=== PATIENT | male | born 1955 | race Caucasian/White ===

== ENCOUNTER 2018-10-18 10:56 | Inpatient (IN) | payer SELFPAY ==
[2018-10-18 11:23] LABS: #Eosinphils 0.1 thou/uL (0.0-0.7); #Lymphocytes 2.1 thou/uL (1.20-3.40); #Neutrophils 15.7 thou/uL (1.40-6.50); %Basophils 0.1 % (0.0-1.0); %Eosinophils 0.6 % (0.0-10.0); %Lymphocytes 11.2 % (21.0-51.0); %Monocytes 5.2 % (0.0-10.0); Hemoglobin 13.1 g/dL (14.0-18.0); Mean Corpuscular HGB CONC 32.4 g/dL (32.0-36.0); Mean Corpuscular Hemoglobin 29.7 pg (27.0-31.0); Mean Corpuscular Volume 91.7 fL (78.0-98.0); Mean Platelet Volume 7.6 fL (7.4-10.4); Platelet Count 365 thou/uL (130-400); RBC Distribution Width 12.9 % (11.5-14.5); Red Blood Cell (RBC) Count 4.41 mill/uL (4.70-6.10); White Blood Cell (WBC) Count 18.9 thou/uL (4.8-10.8)
[2018-10-18 11:42] LABS: ALT (SGPT) 298 U/L (8-55); AST (SGOT) 319 U/L (5-34); Albumin 3.7 g/dL (3.4-4.8); Alkaline Phosphatase 80 U/L (40-150); Anion Gap 13 mmol/L (10-20); BUN (Urea Nitrogen) 12 mg/dL (8.4-25.7); Bilirubin, Total 0.3 mg/dL (0.2-1.2); Calc. Creatinine Clearance 0 mL/min (70-130); Calcium 8.3 mg/dL (7.8-10.44); Carbon Dioxide 23 mmol/L (23-31); Chloride 108 mmol/L (98-107); Estimated GFR-MDRD Greater than 90; Globulin 2.6 g/dL (2.4-3.5); Glucose 167 mg/dL (80-115); Potassium 4.2 mmol/L (3.5-5.1); Protein, Total 6.3 g/dL (5.8-8.1); Sodium 140 mmol/L (136-145)
[2018-10-18] MEDS ORDERED: Fentanyl 100 MCG/2 ML VIAL ONE ×3 (11:59→13:56)
--- NOTE | 2018-10-18 12:04 | RAD ---
AP PELVIS: HISTORY: Fall. Pelvic pain. FINDINGS: No definite fracture or dislocation is seen. POS: [facility]
--- NOTE | 2018-10-18 12:09 | RAD ---
PORTABLE CHEST 1 VIEW: DATE: 10/18/2018. TIME: 11:02 a.m. HISTORY: Fall, right-sided chest pain. FINDINGS: The heart size is normal. The left lung is clear. There are multiple right-sided rib fractures with a small right pleural effusion. There is subcutane ous emphysema in the right lateral chest wall. There is a comminuted fracture involving the right cl avicle. Subcutaneous emphysema extends into the right side of the neck. There are hazy opacities in the right lung suspicious for pulmonary contusions. Discussed over the telephone with ER physician, Dr. Gumaro Sarmiento, at 11:14 a.m. CODE PARVIZ POS: [facility]
[2018-10-18] MEDS ORDERED: Lidocaine 1% (PF) 30 ML VIAL ONE (12:11)
--- NOTE | 2018-10-18 12:12 | CT ---
CT CERVICAL SPINE WITHOUT CONTRAST: History Trauma. Fall. COMPARISON: None. FINDINGS: The occipital condyles are intact. Lateral masses of C1 are intact. The odontoid process is intact. Incomplete evaluation of fracture of the right transverse process of T2 as well as the right 1st and 2nd ribs. No acute fracture of the cervical spine. Mild facet arthropathy. Mild subcutaneous emphysema on the right paraspinal musculature. IMPRESSION: 1. No acute fracture of the cervical spine. 2. Right-sided 1st and 2nd rib neck fractures as well as right T2 transverse process fracture. 3. Likely a right-sided extrapleural hematoma of the lung apex. POS: [facility]
--- NOTE | 2018-10-18 12:12 | CT ---
CT BRAIN WITHOUT CONTRAST: HISTORY: Fall. Level 2 trauma. COMPARISON: None. FINDINGS: No acute hemorrhage or infarct. No midline shift or mass effect. Ventricular size and extraaxial CS F spaces are normal. No midline shift or mass effect. The calvarium is intact. The paranasal sinuses and mastoids are cl ear. Punctate radiopacity is present along the left frontal calvarium scalp. The globes are normal. IMPRESSION: No acute posttraumatic intracranial sequela. POS: [facility]
--- NOTE | 2018-10-18 12:37 | CT ---
CT THORAX WITH IV CONTRAST CT ABDOMEN AND PELVIS WITH IV CONTRAST CT THORACIC AND LUMBAR SPINE: DATE: 10/18/2018. HISTORY: Injury after a fall. The patient has right-sided back pain after falling 10 feet off a roof. Right- sided chest pain exacerbated with inspiration. FINDINGS: CT THORAX: There are multiple right-sided rib fractures with a fracture involving the medial right 1st rib as we ll as fractures involving the 2nd through 9th ribs with fractures involving the medial as well as lat eral aspects of these ribs. The lateral rib fractures are mildly displaced by a full shaft width. There is a small right-sided pneumothorax which occupies at least 15% of the volume of the right sarah thorax. A small amount of increased density fluid is seen on the right suggesting hemothorax. There are areas of parenchymal increased density and ground-glass opacities likely attributable to mu ltiple contusions within the right lung. There are lucencies within the areas of patchy parenchymal density likely representing traumatic pneumatoceles as well as more linear lucency suggesting lacerat ion. There is evidence of subcutaneous emphysema on the right. There is a comminuted fracture involving the middle 1/3 of the right clavicle as well as a mildly com minuted fracture involving the body of the scapula. There is dependent atelectasis on the left, but no left-sided pneumothorax, pleural effusion is ident ified, or left-sided rib fracture is appreciated. CT ABDOMEN AND PELVIS: There is an area of heterogeneity but predominantly of increased density within the central mesentery measuring 4.9 cm x 2.8 cm suggesting an area of hemorrhage. Adjacent linear stranding and hemorrhag e is also present. There are no findings to suggest an area of active extravasation in this region. A tiny amount of free fluid is seen adjacent to the liver and spleen. No obvious parenchymal organ i njury is seen. There are multiple subcentimeter hypodense and slightly heterogeneous lesions seen throughout each lo be of the liver. The largest hypodense lesion in the posterior aspect right hepatic lobe measures 1. 9 cm. There is a 1.4 cm heterogeneous lesion seen within the medial segment of the left hepatic lobe . Findings are worrisome for metastatic disease. A right adrenal lesion which is difficult to further characterize on this post-enhanced CT exam measu res 2.9 cm. This could also potentially represent a metastatic lesion but further evaluation with pr econtrast imaging is recommended. There is a slight area of heterogeneity within the body of the spleen which is thought to be related to phase of enhancement, and this is not felt to represent a splenic injury and laceration. The pancreas, left adrenal gland, bilateral kidneys, and urinary bladder demonstrate a normal CT appe arance. Vascular calcifications are seen in the abdominal aorta and involving the iliac arteries. No fracture is seen involving the osseous structures of the pelvis. CT THORACIC AND LUMBAR SPINE: There are fractures involving the most lateral aspect of the right 2nd, 4th, 5th, and 6th transverse processes of the thoracic spine with a questionable fracture involving the tip of the right 7th trans verse process. There are also nondisplaced fractures involving the right 2nd and 3rd lumbar vertebra l body transverse processes. Vertebral body heights are within normal limits. No additional fracture is seen involving the thorac ic or lumbar spine. There is mild grade anterolisthesis of L5 on S1 likely attributable to the prominent facet degenerati ve changes at this level. IMPRESSION: 1. Findings worrisome for metastatic disease with multiple hypodense lesions seen throughout each lo be of the liver as well as a right adrenal nodule. However, the right adrenal lesion cannot be accur ately characterized on this exam, and precontrast images are recommended for further evaluation. 2. Multiple right-sided rib fractures involving the 1st through 9th ribs with flail segment involvin g the 2nd through 9th ribs. Rib fractures are mildly displaced as described above. 3. Right hemopneumothorax with parenchymal lung contusions seen throughout the right lung with assoc iated small pneumatoceles and areas of laceration. 4. Subcutaneous emphysema right lateral chest and extending into the supraclavicular region. 5. Comminuted fracture right scapula as well as right clavicle. 6. Transverse process fractures involving upper thoracic vertebral bodies as well as the right 2nd a nd 3rd lumbar vertebral bodies. 7. Hemorrhage/hematoma within the central mesentery with adjacent stranding/hemorrhage. 8. Tiny amount of free fluid adjacent to the liver and spleen. 9. Above findings were discussed with Dr. Sarmiento in the emergency department on 10/18/2018 at 1158 hours. CODE CR POS: [facility]
--- NOTE | 2018-10-18 13:15 | RAD ---
PORTABLE CHEST 1 VIEW: DATE: 10/18/2018. TIME: 12:56 p.m. HISTORY: Chest tube placement, pneumothorax, right rib and clavicular fractures. FINDINGS/IMPRESSION: There has been interval placement of a right chest tube since earlier exam of 11:02 a.m. No definite pneumothorax is seen. The remainder of the exam is otherwise stable. POS: [facility]
[2018-10-18] MEDS ORDERED: Rib Fracture Protocol IV SCH (13:45)
[2018-10-18] MEDS ORDERED: Dextrose 5% in Water 1,000 ML IV PRN (13:45)
[2018-10-18] MEDS ORDERED: Morphine 4 MG/ML VIAL SLOW IVP PRN (13:45)
[2018-10-18] MEDS ORDERED: Ondansetron PF 4 MG/2 ML Vial IVP PRN ×2 (13:45→16:40)
[2018-10-18] MEDS ORDERED: Dextrose 50% Abboject 50 ML SYRINGE SLOW IVP PRN (13:45)
[2018-10-18] MEDS ORDERED: HYDROcodone/Acetaminophen 5/325 mg Tablet PO PRN (14:05)
[2018-10-18 14:27] LABS: Hemoglobin 11.9 g/dL (14.0-18.0)
[2018-10-18] MEDS ORDERED: Adacel (T-DAP) 0.5 ML SYRINGE ONE (14:35)
[2018-10-18] MEDS: Sodium Chloride 0.9% 1,000 ML IV SCH (15:31)
[2018-10-18 15:41] VITALS: BMI 26.5
[2018-10-18] MEDS ORDERED: diphenhydrAMINE 50 MG/ML VIAL IVP PRN (16:40)
[2018-10-18] MEDS ORDERED: diphenhydrAMINE 25 MG CAP PO PRN (16:40)
[2018-10-18] MEDS ORDERED: Zolpidem Tartrate 5 MG TAB PO PRN (16:40)
[2018-10-18] MEDS ORDERED: Promethazine HCl 25 MG/ML VIAL IM PRN (16:40)
[2018-10-18] MEDS ORDERED: Naloxone HCl 0.4 mg/ml Vial IV PRN (16:40)
[2018-10-18] MEDS ORDERED: diphenhydrAMINE 50 MG/ML VIAL IM PRN (16:40)
[2018-10-18] MEDS ORDERED: Communication Order-Pharmacy FS SCH (16:45)
--- NOTE | 2018-10-18 17:40 | CON ---
DATE OF CONSULTATION: 10/18/2018 HISTORY OF PRESENT ILLNESS: The patient was in his normal state of health this morning when he fell off of his roof. We were asked by Trauma in the emergency room to see the patient. The patient is on a gurney, resting in bed with multiple injuries for orthopedic purposes. We are seeing him for his right clavicle and scapula fracture. He also has multiple spinous process, transverse process, rib fractures the Trauma is dealing with. He is awake, alert, talking. Family is at the bedside. He is in mild amount of distress due to multiple areas of pain. Medication is easing this somewhat. We discussed the fracture. I showed him where his fracture was at and he did have some pain there and there was obvious bruising and some swelling. He is able to move the right upper extremity well though. Sensations are intact. PAST MEDICAL HISTORY: Healthy, does not see a doctor regularly. SOCIAL HISTORY: [place]. No alcohol or nicotine products. No drugs products. Continues to work. Family is at bedside. SURGICAL HISTORY: None. ALLERGIES: NONE. CURRENT MEDICATIONS: Occasional OTC meds, but nothing on a daily basis. FAMILY HISTORY: His father passed at 78 from heart attack. Otherwise, no positive family history. REVIEW OF SYSTEMS: Multiple complaints of body aches and some shortness of breath, which chest tube has eased. Rest of review of systems is negative. PHYSICAL EXAMINATION: GENERAL: Well-nourished, awake, alert male. Resting on gurney in room 2 in the ER. Speech is clear. Affect pleasant. Answers questions appropriately. He is oriented x3. HEENT: Normal exam. He does have some abrasions to the right side of his face, but the face is symmetric, tongue is midline. NECK: He did have an initial C-collar on. Exam of the neck revealed suppleness. Range of motion is full. Trauma removed the collar. Trachea midline. EXTREMITIES: Upper extremities, there is obvious edema, ecchymosis to the right clavicle area with some tenderness to palpation as is to the posterior scalpel area. Left upper extremity seems to have no positive findings. Both are equal size, shape, symmetry, normal bulk and tone and moving well. Sensation are intact as are pulses. Lower extremity exam, equal size, shape, symmetry, normal bulk and tone. Movements are well. He is actually pushing with his extremities to move his hips on the gurney. DP and PT pulses are intact. PELVIS: Negative exam. No tenderness with rocking the pelvis. ASSESSMENT: 1. Multi-trauma. 2. Clavicle scapula fractures, nonsurgical in nature. PLAN: From an Orthopedic standpoint, we will check on the patient while he is here. He needs no surgical intervention at this time. The x-ray showed clavicle scapula fracture. Clavicle is not shortened, so currently we will put the patient in a sling, but he will need multiple other treatments for his other injuries. Job ID: [id number]
[2018-10-18] MEDS: HYDROmorphone 10 mg/100 ml CADD IVPB PRN (17:44)
--- NOTE | 2018-10-18 17:57 | PRG ---
DATE OF SERVICE: 10/18/2018 Please see Surinder Smith for full details. CHIEF COMPLAINT: Fall. HISTORY OF PRESENT ILLNESS: Mr. Nazario injuries include multiple right rib fractures, right hemopneumothorax, mesenteric hemorrhage stable, questionable metastatic disease to liver, multiple transverse process fractures. Mr. Nazario is seen in the ICU. He has had a right chest tube placed. It is in good position. He is hemodynamically stable. His O2 sats are excellent. His pain is severe, but he is getting a [employer]. PLAN: The plan is for pain control, aggressive pulmonary toilet, chest tube management. We will start process of workup for metastatic disease to the liver while he is here that process can be completed as an outpatient. Job ID: [id number]
[2018-10-18] MEDS ORDERED: Ketorolac Tromethamine 30 MG/ML VIAL IVP SCH (18:00)
[2018-10-18] MEDS ORDERED: Acetaminophen 650 MG Suppository PR SCH (18:00)
[2018-10-18] MEDS: Acetaminophen 500 MG TAB PO SCH ×2 (19:10→23:58)
[2018-10-18] MEDS: Ibuprofen 800 MG TAB PO SCH ×2 (19:10→23:58)
[2018-10-18] MEDS: Famotidine 20 MG TAB PO SCH (21:01)
[2018-10-18] MEDS: Gabapentin 300 MG CAP PO SCH (21:01)
--- NOTE | 2018-10-18 21:18 | HP ---
REFERRING PHYSICIAN: Dr. Gumaro Walter in the Emergency Department. TRAUMA ATTENDING: Alex Copeland MD CONSULTING ORTHOPEDIST: Galo Nicole MD HISTORY OF PRESENT ILLNESS: Mr. Nazario is a 63-year-old male with no significant past medical history, who presents to the emergency department via EMS today with chief complaint of fall from roof. The patient landed on his right side, experienced right flank pain and right back pain. Denies any loss of consciousness or shortness of air. The patient was found to be hypoxic in the emergency department. He had a RANDALL scan done. CT head was negative. CT C-spine was negative, but did demonstrate transverse fractures of the thoracic spine as well as rib fractures. CT chest, abdomen, and pelvis demonstrated a comminuted right scapular fracture, right clavicular fracture, multiple right rib fractures including a flail segment. Right hemopneumothorax, a right lung contusion and laceration. Peritoneal edema and hematoma are noted. The patient's blood pressure has remained stable, heart rate is stable. He has been given Fentanyl by the emergency department physician. He is on oxygen at the time I got consulted. He has no injuries to his lower extremities or his pelvis. I have seen the patient in the emergency department. I placed an emergent right chest tube with resolution of the right pneumothorax. This was placed to suction. Please see separate documentation. The patient complains of shortness of air. He was initially noted to be hypoxic, but was saturating 98% to 99% on 4 L of oxygen via nasal cannula prior to chest tube placement. He mostly complains of back pain and rib pain. He does not have any chest pain. No neck pain. No headache. He denies loss of consciousness. No nausea. No vomiting and no glen abdominal pain. He is able to move all of his extremities. I have interviewed him and his at the bedside. He is not on any blood thinners. I have also done a complete chart review. REVIEW OF SYSTEMS: Pertinent positives and negatives as per HPI, otherwise is regarded as negative. PAST MEDICAL HISTORY: The patient denies. PAST SURGICAL HISTORY: Denies. MEDICATIONS: Naproxen daily. ALLERGIES: NO KNOWN DRUG ALLERGIES. FAMILY HISTORY: Noncontributory and unknown at this time. SOCIAL HISTORY: The patient currently lives with a female partner of many years, works, completes all of his own ADLs. He is a nonsmoker and nondrinker, and does not use tobacco. PHYSICAL EXAMINATION: VITAL SIGNS: Blood pressure 139/75, heart rate is 88, respiratory rate is 16, temperature is 98.3, saturating now 100% on room air after chest tube placement. GENERAL: This is a 63-year-old male, lying supine in bed, in no acute distress and nontoxic appearing. HEENT: Normocephalic, atraumatic. He has no blood noted from ears or nares. Mucous membranes are moist. NECK: Trachea is midline. No JVD. RESPIRATORY: Does have a flail segment on the right. Crepitus noted and subcutaneous emphysema noted on the right. He has diminished breath sounds on the right. Clear lung sounds on the left with no wheezes. CARDIOVASCULAR: Regular rate and rhythm. No murmurs appreciated. Strong pulses. No edema is noted. ABDOMEN: Soft, nontender. No distention. No grimace or masses. PELVIS: Stable. MUSCULOSKELETAL: Moves all extremities. Does have pain to the right shoulder, deformities to the right clavicle. Does have good pulses distal to the injuries. SKIN: [place], warm, and dry. NEUROLOGIC: Alert and oriented to person, place, time, and event. No gross deficits are appreciated. PSYCH: Normal mood and affect. DIAGNOSTIC CRITERIA: Today, a pelvis x-ray is read as negative. Chest x-ray shows multiple rib fractures. Cervical spine CT negative for acute fracture or dislocation of the cervical spine. CT head is negative. CT abdomen and pelvis shows worrisome for metastatic disease with multiple hyperdense lesions throughout the lobe of liver in the right adrenal nodule. This was discussed with the patient. Multiple right-sided rib fractures 1 through 9 with flail segments in ribs 2 through 9 with minimally displaced. Right hemopneumothorax with pulmonary contusion. Subcutaneous emphysema. Comminuted right scapular fracture and right clavicle fracture. Transverse process fractures involving the thoracic as well as second, third lumbar vertebral spinous processes and a hematoma and hemorrhages in the central mesentery with adjacent stranding and hemorrhage. There is some intraabdominal free fluid about the liver and the spleen. LABORATORY DATA: From today shows a blood type of A negative. Sodium is 140, potassium is 4.2, chloride is 108, carbon dioxide is 23, BUN is 12, creatinine is 0.83, glucose is 167. AST and ALT 319 and 298 respectively with a bilirubin total of 0.3, calcium is 8.3. White blood cell count at 18.9, hemoglobin and hematocrit 13.1 and 40.1 respectively. Does have neutrophil predominance of 83.0%. ASSESSMENT AND PLAN: 1. Fall with polytrauma. 2. Right hemopneumothorax. 3. Right flail segment with rib fractures 1 through 9. 4. Right clavicle fracture. 5. Right comminuted scapular fracture. 6. Multiple transverse process fractures. 7. Hyperglycemia. 8. Intraabdominal free fluid and hematoma. 9. Transaminitis. 10. Leukocytosis likely reactive. 11. Liver hypodensities concerning for metastatic disease. PLAN: 1. I have placed an emergent right chest tube with resolution and improvement in the patient's pulmonary function. Continue to monitoring. Keep this on suction. 2. Repeat chest x-ray in the morning. 3. Admit to the CCU with serial abdominal exams. 4. Check hemoglobin and hematocrit every 12 hours. 5. Consult Orthopedics. Appreciate recommendations. 6. I reviewed the films with Neurosurgery. There is no intervention for them. They are signing off. 7. I have consulted Anesthesia for pain management, consideration for [employer] and spinal anesthesia given the multiple fractures. 8. Rib fracture protocol. 9. Trauma bowel regimen. 10. Diet will be n.p.o. except for medications. 11. Full code. 12. Access with peripheral IVs, and a right 28-Cambodian chest tube. 13. Disposition: CCU. 14. Activity: As tolerated, can get up to the bedside chair. 15. Prophylaxis will be famotidine and SCDs. I have updated the patient and the patient's family at the bedside. I have coordinated care with the Emergency Department Team, Trauma Team, and Orthopedics. Job ID: [id number]
[2018-10-19 02:31] LABS: #Lymphocytes 1.3 thou/uL (1.20-3.40); #Monocytes 1.1 thou/uL (0.11-0.59); #Neutrophils 8.6 thou/uL (1.40-6.50); %Basophils 0.1 % (0.0-1.0); %Eosinophils 0.1 % (0.0-10.0); %Monocytes 10.3 % (0.0-10.0); %Neutrophils 77.6 % (42.0-75.0); Hemoglobin 11.6 g/dL (14.0-18.0); Mean Corpuscular HGB CONC 33.8 g/dL (32.0-36.0); Mean Corpuscular Hemoglobin 30.6 pg (27.0-31.0); Mean Corpuscular Volume 90.6 fL (78.0-98.0); Mean Platelet Volume 7.6 fL (7.4-10.4); Platelet Count 351 thou/uL (130-400); RBC Distribution Width 12.9 % (11.5-14.5); White Blood Cell (WBC) Count 11.1 thou/uL (4.8-10.8)
[2018-10-19 03:05] LABS: ALT (SGPT) 239 U/L (8-55); AST (SGOT) 157 U/L (5-34); Albumin 3.6 g/dL (3.4-4.8); Alkaline Phosphatase 65 U/L (40-150); Anion Gap 14 mmol/L (10-20); BUN (Urea Nitrogen) 16 mg/dL (8.4-25.7); Bilirubin, Total 0.5 mg/dL (0.2-1.2); Calc. Creatinine Clearance 143 mL/min (70-130); Calcium 8.1 mg/dL (7.8-10.44); Carbon Dioxide 23 mmol/L (23-31); Chloride 106 mmol/L (98-107); Estimated GFR-MDRD Greater than 90; Globulin 2.6 g/dL (2.4-3.5); Glucose 146 mg/dL (80-115); Protein, Total 6.2 g/dL (5.8-8.1); Sodium 138 mmol/L (136-145)
[2018-10-19] MEDS: Sodium Chloride 0.9% 1,000 ML IV SCH (04:08)
--- NOTE | 2018-10-19 05:10 | OP ---
DATE OF PROCEDURE: 10/18/2018 PROCEDURE PERFORMED: Right tube thoracostomy. Consent signed in verbal by the patient and the family. INDICATIONS: 1. Right hemopneumothorax. 2. Hypoxemia. DESCRIPTION OF PROCEDURE: Mr. Nazario presented to the emergency department with rib fracture, status post fall and hemopneumothorax necessitating tube thoracostomy. Consent was obtained. The patient was prepped and draped in the usual fashion and hygiene was observed. The skin was prepped with 4% chlorhexidine swab and allowed to completely dry. Gowns, mask, hat, and sterile gloves were donned. Appropriate site, midaxillary was selected. The patient was placed in the supine position with his right hand over his head with a restraint. Local infiltration with 1% lidocaine without epinephrine into the soft tissue and into the pleural space with a return was noted, a total of 12 mL was instilled. A #10 scalpel was then used to make a linear incision into the skin. The soft tissue was dissected away with blunt dissection. Kellys were used to enter the pleural cavity, and an opening into the pleural cavity was dilated with Milka forceps and withdrawn creating a track. I placed my finger then into the chest cavity confirming the track and no obstructive physiology. Next, a 28-Iraqi chest tube was inserted into the track that was made with the Kellys. Air and blood were immediately noted upon entering the pleural cavity. Condensation was noted in the tube. It was secured at 14 cm with one suture. Iodoform gauze was placed around the incision site as well as bulky dressing. This was taped in place with tape, and the tube was secured to the chest wall. It was hooked to suction, and air leak was noted. The patient tolerated the procedure very well. Total blood loss 5 mL. A followup chest x-ray was obtained, it shows good position of the thoracostomy tube. The patient's SpO2 remained at 100%. Job ID: [id number]
[2018-10-19] MEDS: Acetaminophen 500 MG TAB PO SCH ×4 (05:36→23:45)
[2018-10-19] MEDS: Ibuprofen 800 MG TAB PO SCH ×4 (05:36→23:46)
--- NOTE | 2018-10-19 05:48 | CON ---
DATE OF CONSULTATION: HISTORY OF PRESENT ILLNESS: Mr. Nazario is a 63-year-old gentleman, who fell off a roof today. I was consulted because of admission to critical care unit. He is actually able to conversing complete sentences. He denies hitting his head. He says he landed on his right side. PAST MEDICAL HISTORY: Reportedly unremarkable. SOCIAL HISTORY: He is a nonsmoker and nondrinker. 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 FAMILY HISTORY: Negative for lung disease in early age. His father with heart disease. ALLERGIES: HE HAS NO DRUG ALLERGIES. REVIEW OF SYSTEMS: Ten points otherwise negative. His only complaint is pain. He has a right chest tube placed for pneumothorax. PHYSICAL EXAMINATION: HEENT: Pupils are equal. Sclerae are anicteric. Extraocular movements are full. NECK: Supple. RESPIRATORY: on the right. He has equal breath sounds. HEART: Regular rhythm. No S3. No rub. ABDOMEN: Soft and nontender. EXTREMITIES: Without clubbing, cyanosis, or edema. DIAGNOSTIC DATA: Chest radiograph shows multiple rib fractures. CT of his C-spine was unremarkable. Head CT was negative. He has pulmonary contusions in his right lung on CT. Right clavicle fracture and possible mesenteric hemorrhage, and multiple liver lesions of unclear etiology. IMPRESSION: 1. Flail chest. 2. Multiple thoracic transverse process fractures. 3. Mesenteric hemorrhage. 4. Traumatic pneumothorax with chest tube in place. 5. Liver abnormalities that are not yet classified. Further workup at a later date with a dedicated imaging of the liver and input from Gastroenterology might be reasonable. I will be happy to follow with the other physicians caring for him. He is stable at this time. TIME SPENT: This was a 70-minute consult, 50% of the time spent on the unit coordinating care. Job ID: [id number]
[2018-10-19] MEDS: HYDROmorphone 10 mg/100 ml CADD IVPB PRN (07:29)
[2018-10-19] MEDS: Cyclobenzaprine 10 MG TAB PO PRN ×2 (08:32→20:15)
[2018-10-19] MEDS: Gabapentin 300 MG CAP PO SCH ×3 (08:32→20:14)
[2018-10-19] MEDS: Famotidine 20 MG TAB PO SCH ×2 (08:32→20:14)
--- NOTE | 2018-10-19 09:01 | RAD ---
CHEST ONE VIEW: HISTORY: Status post chest tube. COMPARISON: 10/18/2018 FINDINGS: Stable right-sided chest tube. Stable subcutaneous emphysema in the right neck and right chest wall. Persistent opacification in the right lung. Significant pneumothorax is not appreciated. Stable a eration of the left lung, and stable cardiac silhouette. Multiple right rib fractures are again note d. A right clavicle fracture is identified. IMPRESSION: No significant interval change. POS: [facility]
[2018-10-19] MEDS ORDERED: HYDROcodone/Acetaminophen 10/325 mg Tablet PO PRN (14:19)
--- NOTE | 2018-10-19 14:55 | PRG ---
DATE OF SERVICE: 10/19/2018 SUBJECTIVE: Aravind's only complaint today is that he has not had a bowel movement. He wants to go into the bathroom. He could be disconnected from mechanical and electrical monitoring and disconnected from wall suction since he does not have an air leak at this time, if that is absolutely necessary. Bedside commode will be better, but he is not sure if he can use one. OBJECTIVE: VITAL SIGNS: His heart rate is in 80s, respiratory rate 18, and oximetry is 96%. LUNGS: Remarkable for equal breath sounds without rhonchi. HEART: Regular rhythm. ABDOMEN: Soft. LABORATORY DATA: White count 11.1, hemoglobin 11.6, and platelets 351. Sodium 138, potassium 5, chloride 106, bicarb 23, BUN 16, and creatinine 0.74. IMPRESSION: Status post fall with a traumatic pneumothorax. Chest tube in place with no air leak. PLAN: Continue supportive care. He may transfer out of critical care today. We will sign off once he transfers out of critical care. Job ID: [id number]
[2018-10-19] MEDS: traMADol HCl 50 MG TAB PO SCH ×2 (17:25→20:14)
--- NOTE | 2018-10-19 22:52 | PRG ---
DATE OF SERVICE: 10/19/2018 SUBJECTIVE: The patient is a level 1 trauma activation, fell from a roof, hospital day #1. Patient with right clavicle and right scapular fractures, rib fractures 2 through 9, currently in the ICU on a CEMENTER HAND pump. The patient with right hemopneumothorax with chest tube to suction. The patient reports pain control with CEMENTER HAND pump. The patient is able to use his incentive spirometer with good volume. No leak noted to chest tube. OBJECTIVE: VITAL SIGNS: Blood pressure 166/83, heart rate 74, respirations 17, SpO2 of 98% on room air, and temperature 98.3. GENERAL: A 63-year-old male, lying supine in bed, in no acute distress. HEENT: Normocephalic, atraumatic. NECK: Trachea is midline. No JVD. RESPIRATORY: Respirations are equal and symmetrical. No rhonchi noted. CARDIOVASCULAR: Regular rate and rhythm. No murmurs. Strong pulses. ABDOMEN: Soft, nontender, and nondistended. MUSCULOSKELETAL: Moves all extremities with good distal pulses. NEUROLOGIC: Alert and oriented x4. LABORATORY DATA: WBC 11.1, RBC 3.8, hemoglobin 11.6, hematocrit 34.4. Sodium 138, potassium 5.0, chloride 106, BUN 16, creatinine 0.74, glucose 146, calcium 8.1, AST 157, ALT 239, albumin 3.6. DIAGNOSTICS: Chest x-ray, no change from previous x-ray from the day before. Stable right-sided chest tube. Stable aeration of the left lung. ASSESSMENT AND PLAN: 1. Fall from roof. 2.. Acute traumatic pain. 3. Traumatic pneumohemothorax with chest tube placement. 4. Elevated liver enzymes. 5. Mesenteric hemorrhage. We will change the patient to p.o. pain regimen, discontinue CEMENTER HAND pump. Move patient to the surgical floor. Place patient's right chest tube to water seal. We will monitor patient's hypertension most likely due to pain and anxiety. If the patient continues to be hypertensive, we will place patient on an ARB as the patient reports he is taking SAUNDRA inhibitor previously, which made him cough and could not tolerate. We will continue incentive spirometer and pulmonary toilet. Continue supportive care. We will consult GI if continued elevated liver enzymes and liver masses. We will repeat labs in the morning and chest x-ray. This patient has been discussed with the attendant surgeon. Job ID: [id number] MTDD
[2018-10-20] MEDS: traMADol HCl 50 MG TAB PO SCH ×4 (02:18→20:15)
[2018-10-20] MEDS: Acetaminophen 500 MG TAB PO SCH ×2 (05:57→14:35)
[2018-10-20] MEDS: Ibuprofen 800 MG TAB PO SCH ×4 (05:58→23:39)
[2018-10-20] MEDS: Amlodipine 10 MG TAB PO SCH (09:27)
[2018-10-20] MEDS: Famotidine 20 MG TAB PO SCH ×2 (09:27→20:14)
[2018-10-20] MEDS: Gabapentin 300 MG CAP PO SCH ×3 (09:27→20:14)
--- NOTE | 2018-10-20 10:09 | RAD ---
PORTABLE CHEST ONE VIEW: 10/20/2018 6:25 a.m. HISTORY: Chest trauma. Right rib and clavicular fractures. Chest tube placement. Pneumothorax. FINDINGS: A small right apical pneumothorax is seen on the current study, which was not noted on the previous e xam. There has been interval repositioning of the right-sided chest tube, with the tip located infer iorly compared to the previous study. The remainder of the exam is otherwise stable. POS: [facility]
--- NOTE | 2018-10-20 10:47 | RAD ---
FRONTAL RADIOGRAPH CHEST: 10/20/2018 10:22 a.m. HISTORY: Chest tube. COMPARISON: 10/20/2018 at 6:25 a.m. FINDINGS: A stable right-sided chest tube is present. The SidePort to the chest tube is outside the right sarah thorax, overlying the associated soft tissues, stable when compared to the study performed earlier on 10/20/2016. A small apical pneumothorax is noted on the right, probably slightly decreased in size when compared to the recent prior study. There are numerous fracture deformities involving the right-sided ribs, a s well as the right clavicle. The left lung appears grossly unremarkable. IMPRESSION: 1. Stable right chest tube, with SidePort outside the right hemithorax. 2. Small apical pneumothorax on the right suspected, probably slightly smaller than on the study per formed earlier on 10/20/2018. 3. Persistent hazy density in the right base. Continued followup advised. POS: [facility]
[2018-10-20] MEDS: Cyclobenzaprine 10 MG TAB PO PRN ×2 (13:01→20:14)
[2018-10-20] MEDS: Acetaminophen 325 MG TAB PO SCH ×2 (14:35→20:20)
--- NOTE | 2018-10-20 17:34 | RAD ---
PORTABLE CHEST: 10/20/18 COMPARISON: Earlier exam the same day. HISTORY: Re-evaluation of right sided pneumothorax. The right chest tube is now seen to be entirely outside the chest cavity. Apical pneumothorax appears slightly increased in size. Right sided rib fractures are noted. Left lung remains clear. IMPRESSION: The right sided chest tube is now entirely outside the chest cavity. Right apical pneumothorax appear s slightly increased in size. Findings telephoned to Cierra, the patient's nurse. POS: [facility]
--- NOTE | 2018-10-20 20:07 | PRG ---
DATE OF SERVICE: 10/20/2018 SUBJECTIVE: The patient is a level one trauma activation, who fell from a roof, hospital day #2. The patient with right clavicle, right scapula fractures, right ribs 2 through 9. The patient with right hemopneumothorax with chest tube in place, patient's chest tube is currently to water-seal. The patient reports good pain control overnight. The patient is able to use his incentive spirometer. The patient concerned with right shoulder pain and right clavicle pain. Also family question status of liver mass that was reported. The patient's blood pressure has been slightly elevated since admission. OBJECTIVE: VITAL SIGNS: Temperature 98.3, pulse 95, respirations 16, SpO2 of 90% to 94% on room air, and blood pressure 145/87. GENERAL: The patient is sitting up in bed, in no distress. HEENT: Normocephalic and atraumatic. NECK: Trachea is midline. No JVD. Respirations are equal and unlabored. The patient with equal breath sounds, slightly coarse on the right. CARDIOVASCULAR: Regular rate and rhythm. No murmurs. No pedal edema. ABDOMEN: Slightly distended, but soft. The patient is passing gas, and the patient does have positive bowel sounds. MUSCULOSKELETAL: Moves all extremities with positive distal pulses. NEUROLOGIC: Alert and oriented x4. LABORATORY DATA: There is no laboratory data to review today. DIAGNOSTIC STUDIES: A.m. chest x-ray shows a right chest tube pulled back and not in previous position. Chest tube does remain in the pleural cavity. A repeat chest x-ray on the same day in the afternoon reveals chest tube to be completely displaced. ASSESSMENT: 1. Fall from roof. 2. Acute traumatic pain. 3. Traumatic pneumothorax to the right with thoracostomy, displaced. 4. Elevated liver enzymes. 5. Right clavicle and scapular fracture. PLAN: Supportive care. Will continue pulmonary toilet and encourage incentive spirometer use. Chest tube was placed back onto suction, and plan was to repeat chest x-ray in the afternoon and watch patient's as long as he was not symptomatic. The patient was started on a calcium channel shilpa for his hypertension. We will repeat labs tomorrow. We will consult Ortho about concern of the right shoulder , right clavicle fracture, and pain. Now the chest tube has been completely out of the chest cavity. The plan is to remove and apply an occlusive dressing. We will watch the patient overnight. Repeat chest x-ray in the morning. If the patient does not improve, we will place the patient on n.p.o. tonight and consider placement under sedation for thoracostomy. Discussed concern about the liver mass. Discussed with Interventional Radiology, recommended MRI with and without contrast as the liver lesions maybe post injury and locations of lesion are in a difficult position to biopsy. We will consider consulting GI for possible EGD and colonoscopy, and this will be done on a non-emergency basis. This patient was discussed with the attendant surgeon. Job ID: [id number] [facility]
[2018-10-20] MEDS ORDERED: Senokot S 8.6-50 MG TAB PO SCH (22:30)
[2018-10-20] MEDS ORDERED: Polyethylene Glycol 3350 17 GM Packet PO SCH (22:30)
[2018-10-21] MEDS: traMADol HCl 50 MG TAB PO SCH ×4 (03:08→21:15)
[2018-10-21] MEDS: Acetaminophen 325 MG TAB PO SCH ×4 (03:08→21:15)
[2018-10-21] MEDS: Ibuprofen 800 MG TAB PO SCH ×3 (05:36→17:54)
[2018-10-21 06:48] LABS: ALT (SGPT) 93 U/L (8-55); AST (SGOT) 41 U/L (5-34); Albumin 3.1 g/dL (3.4-4.8); Alkaline Phosphatase 62 U/L (40-150); Anion Gap 9 mmol/L (10-20); BUN (Urea Nitrogen) 14 mg/dL (8.4-25.7); Bilirubin, Total 0.6 mg/dL (0.2-1.2); Calc. Creatinine Clearance 156 mL/min (70-130); Calcium 8.4 mg/dL (7.8-10.44); Carbon Dioxide 27 mmol/L (23-31); Chloride 106 mmol/L (98-107); Estimated GFR-MDRD Greater than 90; Globulin 2.4 g/dL (2.4-3.5); Glucose 88 mg/dL (80-115); Potassium 4.1 mmol/L (3.5-5.1); Protein, Total 5.5 g/dL (5.8-8.1); Sodium 138 mmol/L (136-145)
--- NOTE | 2018-10-21 08:54 | RAD ---
PORTABLE CHEST 1 VIEW: Date: 10/21/18 Time: 0548 hours HISTORY: Pneumothorax. FINDINGS/IMPRESSION: Comparison made with exam from previous day. The right-sided chest tube has been removed in the interim compared to the previous study at 0508 natalia rs from 10/20/18. A small right pneumothorax is noted and appears stable. Multiple right-sided rib fr actures and fractures of the right clavicle are again seen. The heart size is stable. The left lung i s clear. POS: [facility]
[2018-10-21] MEDS: Senokot S 8.6-50 MG TAB PO SCH ×2 (09:01→20:19)
[2018-10-21] MEDS: Gabapentin 300 MG CAP PO SCH ×3 (09:02→20:19)
[2018-10-21] MEDS: Amlodipine 10 MG TAB PO SCH (09:02)
[2018-10-21] MEDS: Famotidine 20 MG TAB PO SCH ×2 (09:02→20:19)
[2018-10-21] MEDS: Polyethylene Glycol 3350 17 GM Packet PO SCH (09:03)
[2018-10-21 09:15] LABS: #Eosinphils 0.2 thou/uL (0.0-0.7); #Lymphocytes 1.2 thou/uL (1.20-3.40); #Monocytes 0.7 thou/uL (0.11-0.59); #Neutrophils 6.2 thou/uL (1.40-6.50); %Basophils 0.4 % (0.0-1.0); %Eosinophils 2.5 % (0.0-10.0); %Lymphocytes 13.9 % (21.0-51.0); %Monocytes 8.4 % (0.0-10.0); %Neutrophils 74.8 % (42.0-75.0); Hemoglobin 9.7 g/dL (14.0-18.0); Mean Corpuscular HGB CONC 33.2 g/dL (32.0-36.0); Mean Corpuscular Hemoglobin 30.4 pg (27.0-31.0); Mean Corpuscular Volume 91.7 fL (78.0-98.0); Mean Platelet Volume 7.4 fL (7.4-10.4); Platelet Count 268 thou/uL (130-400); RBC Distribution Width 13.3 % (11.5-14.5); White Blood Cell (WBC) Count 8.3 thou/uL (4.8-10.8)
[2018-10-21 09:35] LABS: Anion Gap 12 mmol/L (10-20); BUN (Urea Nitrogen) 14 mg/dL (8.4-25.7); Calc. Creatinine Clearance 156 mL/min (70-130); Calcium 8.6 mg/dL (7.8-10.44); Carbon Dioxide 26 mmol/L (23-31); Chloride 104 mmol/L (98-107); Estimated GFR-MDRD Greater than 90; Glucose 89 mg/dL (80-115); Magnesium 2.1 mg/dL (1.6-2.6); Phosphorus 2.2 mg/dL (2.3-4.7); Potassium 4.1 mmol/L (3.5-5.1); Sodium 138 mmol/L (136-145)
--- NOTE | 2018-10-21 17:18 | PRG ---
DATE OF SERVICE: 10/21/2018 SUBJECTIVE: This is a 63-year-old gentleman, who is a level 1 activation, who fell from a roof, hospital day #3. The patient with right clavicle, right scapula fractures, right ribs 2 through 9. The patient with a right hemopneumothorax. Right side chest tube was removed yesterday with an occlusive dressing applied. The patient had no issues overnight. Reports sleeping very well and reports his pain being well controlled. Denies any shortness of breath. The patient is able to use his incentive spirometer. The patient has been up, moving around. The patient still has not had a bowel movement and continues to be distended. The patient is passing gas and denies any abdominal pain. The patient voices he feels like he is ready to go home as his pain has been well managed and he can still do the same things at home as he is doing here. He voices that he is aware that he needs to try and prevent getting pneumonia. He is aware he needs to be up, getting around, using his IS, and taking deep breath. OBJECTIVE: VITAL SIGNS: Temperature 98.1, pulse 70, respirations 18, 96% on room air, and blood pressure 156/72. GENERAL: The patient is sitting up in bed, in no distress. RESPIRATORY: The patient with equal chest rise and fall. Bilateral breath sounds are clear and equal. No distress. No audible rhonchi or rales. MUSCULOSKELETAL: The patient moves all extremities. Normal sensation and distal pulses. HEENT: Normocephalic, atraumatic. NECK: Trachea is midline. There is no JVD. ABDOMEN: Slightly distended, soft. The patient continues to pass gas. Positive bowel sounds. NEUROLOGIC: The patient is alert and oriented x4. No focal deficits. LABORATORY DATA: WBC 8.3, RBC 3.2, hemoglobin 9.7, hematocrit 29.3, and platelets 268. Sodium 138, potassium 4.1, chloride 104, carbon dioxide 26, BUN 14, creatinine 0.68, calcium 8.6, phosphorus 2.2, and magnesium 2.1. DIAGNOSTIC DATA: A.m. chest x-ray shows right side stable pneumothorax, slightly improved from the previous x-ray yesterday afternoon. ASSESSMENT: 1. Fall from roof. 2. Resolving right-sided pneumothorax. 3. Acute traumatic pain. 4. Elevated liver enzymes. 5. Right clavicle and scapula fracture. PLAN: Continue supportive care. Continue pain management. Continue and increase the patient's bowel regimen as he is more distended and with a need to have a bowel movement. GI was consulted. I spoke with Dr. Funes about the patient's liver masses, that appear to be metastatic cancer. Case discussed in detail. Recommendations given from Dr. Funes. Dr. Funes will see the patient tomorrow. We will repeat the patient's chest x-ray in the morning. We will also do a CT liver mass protocol with and without contrast tomorrow. We have also ordered a CEA and an alpha-fetoprotein tumor marker. Dr. Funes agrees to try to find out if this is a metastatic lesion before the patient is discharged as he most likely will not follow up and continue care. The patient and plan have been discussed with the attendant surgeon. Job ID: [id number]
[2018-10-21] MEDS: Cyclobenzaprine 10 MG TAB PO PRN (20:27)
[2018-10-22] MEDS: Ibuprofen 800 MG TAB PO SCH ×6 (01:44→23:32)
[2018-10-22] MEDS: Acetaminophen 325 MG TAB PO SCH ×4 (02:48→20:26)
[2018-10-22] MEDS: traMADol HCl 50 MG TAB PO SCH ×4 (02:48→20:25)
[2018-10-22] MEDS: Cyclobenzaprine 10 MG TAB PO PRN ×2 (07:06→20:26)
[2018-10-22] MEDS: Gabapentin 300 MG CAP PO SCH ×3 (08:02→20:25)
[2018-10-22] MEDS: Senokot S 8.6-50 MG TAB PO SCH ×2 (08:04→20:26)
[2018-10-22] MEDS: Polyethylene Glycol 3350 17 GM Packet PO SCH (08:05)
[2018-10-22] MEDS: Famotidine 20 MG TAB PO SCH ×2 (08:05→20:26)
[2018-10-22] MEDS: Amlodipine 10 MG TAB PO SCH (08:06)
--- NOTE | 2018-10-22 08:43 | RAD ---
PORTABLE CHEST 1 VIEW: Date: 10/22/18 Time: 0623 hours HISTORY: Chest tube removal. FINDINGS/IMPRESSION: No significant interval change is seen since the previous day's exam. Small right pneumothorax, right rib and clavicular fractures are again seen. Opacities in the right lung are redemonstrated. POS: [facility]
--- NOTE | 2018-10-22 13:01 | CT ---
CT ABDOMEN WITH AND WITHOUT IV CONTRAST CT PELVIS WITH IV CONTRAST: Date: 10/22/18 HISTORY: Liver and adrenal mass. FINDINGS: Comparison made with the CT chest/abdomen/pelvis of 10/18/18. Right rib fractures and transverse process fractures of the right second and third lumbar vertebrae a re again seen. There is subcutaneous emphysema in the right lower chest and lateral abdominal wall. A right pleural effusion with adjacent infiltrate/atelectatic change is seen. This pleural effusion is larger than on the previous study. A residual right pneumothorax is present. No free air or free fluid is seen in the abdomen or pelvis. The 3.5 cm right adrenal mass demonstrates an absolute washout of 37.5% and a relative washout of 8.3 %. These findings are indeterminate (normal: absolute washout greater than 60% and normal relative wa shout greater than 40%). Multiple lesions in the liver are again seen. Some of these have attenuation values of simple cysts. Others are too small to characterize. The 1.6 cm lesion in the medial segment of the left lobe of the liver demonstrates internal enhancement in a target appearance and is a suspicious finding. The 1.9 cm lesion in the posterior segment of the right lobe of the liver noted on the previous exam is vague ly seen on the current study. Differential diagnosis includes resolving contusion, hemangioma, or met astatic focus. The spleen, pancreas, left adrenal gland, and kidneys are unremarkable. The prostate is enlarged. IMPRESSION: 1. Right pleural effusion, larger than on 10/18/18. 2. Stable fractures. 3. Indeterminate 3.5 cm right adrenal nodule. 4. Indeterminate liver lesions. 5. Recommend evaluation with PET scan. POS: [facility]
--- NOTE | 2018-10-22 16:31 | PRG ---
DATE OF SERVICE: 10/22/2018 SUBJECTIVE: This is a 63-year-old year old gentleman, who was a level I trauma activation, fell from a roof, at hospital day #4. The patient with right clavicle right and right scapula fracture, right ribs 2 through 9 fractures. The patient also suffered a right hemopneumothorax, right-sided chest tube was removed 2 days ago. The patient had no complaints or issues overnight. Reports sleeping fine and pain is well controlled. The patient is sitting up in chair, drinking coffee. Able to use his incentive spirometer. The patient continues to walk without any difficulty and no shortness of breath. The patient continues to feel like he can be discharged home. OBJECTIVE: VITAL SIGNS: Temperature 97.4, pulse 70, respirations 20, and SpO2 of 97% on room air. GENERAL: The patient is sitting up in chair, in no distress. Voices no concerns. RESPIRATORY: The patient with equal chest rise and fall. Equal bilateral breath sounds. Occlusive dressing intact to right chest. Post chest tube removal 2 days ago. No distress. No audible rales or wheezing. MUSCULOSKELETAL: The patient moves all extremities. Normal sensation and distal pulses bilateral. HEENT: Normocephalic, atraumatic. NECK: Trachea is midline. There is no JVD. ABDOMEN: Distended, but soft. The patient is passing gas. The patient does have positive bowel sounds. Due to have bowel movement. NEUROLOGIC: The patient is alert and oriented x4. No focal deficits. LABORATORY DATA: There are no labs to evaluate today. DIAGNOSTIC DATA: Chest x-ray, small right pneumothorax, right rib and clavicular fractures are again seen. CT abdomen with and without IV contrast and CT pelvis without IV contrast, right ribs and transverse process fractures of the right 2nd and 3rd lumbar vertebrae are seen as previous. Subcutaneous emphysema in the right lower chest and lateral abdominal wall. A right pleural effusion with adjacent infiltrate and atelectatic change is seen. The pleural effusion is larger than on the previous study. Residual right pneumothorax is present. There is no free air or fluid in the abdomen or pelvis. There is a 3.5 cm right adrenal mass and multiple lesions in the liver again seen. Differential diagnosis including resolving contusion or metastatic focus. Dr. Funes is following the patient from an abdominal aspect. ASSESSMENT: 1. Fall from roof. 2. Residual right-sided pneumothorax. 3. Right pleural effusion. 4. Acute traumatic pain. 5. Elevated liver enzymes most likely secondary to liver mass. 6. Right clavicle and scapular fracture. 7. Multiple lesions in the liver. 8. Right adrenal mass. PLAN: Continue supportive care. Continue pain management. Continue the patient on a bowel regimen and increase as the patient is more distended today and still has not had a bowel movement. Dr. Funes evaluated the patient and reviewed the CT scan of the abdomen. He is advised to follow up outpatient after the patient's chest is stabilized. Tumor markers remain pending. Cardiovascular, Thoracic Surgery has been consulted for recommendation, if the patient needs a VATS versus another chest tube placed for the pleural effusion and residual right pneumothorax. The plan has been discussed with the attending surgeon. The plan has also been discussed with the patient and the patient's , who agrees. Job ID: [id number] MTDD
[2018-10-22] MEDS ORDERED: HYDROcodone/Acetaminophen 10/325 mg Tablet PO PRN (17:28)
[2018-10-22] MEDS ORDERED: Magnesium Citrate 300 ML BOT PO SCH (18:00)
[2018-10-22] MEDS: Docusate 100 MG CAP PO SCH (20:26)
--- NOTE | 2018-10-22 20:49 | CON ---
DATE OF CONSULTATION: 10/22/2018 CHIEF COMPLAINT: Fall from roof. HISTORY OF PRESENT ILLNESS: The patient is a 63-year-old man with minimal past medical history, who was working on a roof and slipped and fell on his right side. He had fractures of his right clavicle and scapula in multiple ribs. He had a pneumothorax treated with a chest tube placed in the emergency room and over the ensuing days the chest tube outputs diminished coupled with the fact that the chest tube was starting to back out of the chest. It was opted to remove the tube. Followup chest x-ray the following day suggests a pneumothorax, although the distortion from his displaced rib fractures with flail segment make it somewhat hard to interpret. Followup chest x-ray today shows diffuse haziness, particularly toward the base where the costophrenic angle is lost suggesting retained diffusion. The patient was noted to have an adrenal mass and several small liver masses on his scans done as part of his trauma evaluation. Followup CT scan specifically to address that today shows the fusion in the costophrenic sulcus on the right side. PAST MEDICAL HISTORY: Noncontributory. MEDICATIONS: He takes no medicines on a regular basis other than p.r.n. Aleve. ALLERGIES: HE DENIES ANY MEDICAL OR FOOD ALLERGIES. SOCIAL HISTORY: He does not smoke or drink alcohol. REVIEW OF SYSTEMS: Negative for any breathing problems. Currently, he is uncomfortable, but has reasonable pain control. He is having some constipation. PHYSICAL EXAMINATION: VITAL SIGNS: He is amazingly comfortable appearing, although heart rates have been in the 100 to 110 range, blood pressure around 160 to 170/90 to 110, room air O2 sats are 96%, and T-max this entire hospitalization has been 98.8. HEENT: His head appears to be atraumatic. BACK: He has got some muscle spasms palpable on his right back. LUNGS: He has diminished breath sounds and dullness to percussion. This is asymmetric on the lower third and lower half of his right back. HEART: He has regular rate and rhythm. ABDOMEN: Soft and nontender. NEUROLOGIC: Grossly nonfocal. LABORATORY EXAM: Shows hemoglobin on admission was 13.1, is drifted down to 9.7 today. His BUN was 14, creatinine 0.68 with normal electrolytes and glucose 89. He has had elevated transaminases that are trending down. His bilirubin was 0.3, initially is 0.6 yesterday. CEA was 0.9. His chest x-rays and CT scans are as described above. IMPRESSION AND PLAN: Probable retained right hemothorax. It is possible, I suppose that this represents extrapleural hematoma from his extensive rib fractures and I would prefer to get a formal CT of the chest rather than relying on his plain films in the upper cuts of his abdominal CT scan. Because of the holiday schedule, I am going to plan on doing this the day after tomorrow, the to do what I anticipate to be a thoracoscopic evacuation. I am ordering the CAT scan now and I have relayed this message to my covering partner to double check the CT scan. If all else fails, I anticipate his case being late enough in the day that I will have time to review it myself, Monday. Job ID: [id number]
[2018-10-23] MEDS: traMADol HCl 50 MG TAB PO SCH ×4 (02:37→20:06)
[2018-10-23] MEDS: Acetaminophen 325 MG TAB PO SCH ×4 (02:38→20:07)
[2018-10-23] MEDS: Ibuprofen 800 MG TAB PO SCH ×3 (05:36→18:03)
[2018-10-23] MEDS: Docusate 100 MG CAP PO SCH ×2 (08:26→20:07)
[2018-10-23] MEDS: Famotidine 20 MG TAB PO SCH ×2 (08:26→20:08)
[2018-10-23] MEDS: Polyethylene Glycol 3350 17 GM Packet PO SCH (08:26)
[2018-10-23] MEDS: Senokot S 8.6-50 MG TAB PO SCH ×2 (08:26→20:08)
[2018-10-23] MEDS: Amlodipine 10 MG TAB PO SCH (08:55)
[2018-10-23] MEDS: Gabapentin 300 MG CAP PO SCH ×3 (08:55→20:08)
--- NOTE | 2018-10-23 09:23 | CT ---
CT CHEST WITH IV CONTRAST: Date: 10/23/18 HISTORY: Trauma. Multiple fractured ribs. Chest pain. FINDINGS: Comparison made with exam of 10/18/18. Multiple fractures of the right ribs are again seen with stable associated displacement. A small resi dual pneumothorax is noted, which has improved since the last exam. A moderate size right pleural eff usion is present, larger than on the previous study. There is adjacent atelectatic change/consolidati on. No pericardial effusion or left pleural effusion seen. A small focal area of peripheral ground-glass opacity in the left lower lobe. Right-sided scapular fractures are again seen. There is subcutaneous emphysema in the right chest wall, mildly improved since the last exam. Upper abdominal findings are stable since the previous day's exam. IMPRESSION: Interval worsening of right pleural effusion and improvement of right pneumothorax since 10/18/18. POS: [facility]
--- NOTE | 2018-10-23 12:02 | EKG ---
Test Reason : Blood Pressure : / mmHG Vent. Rate : 079 BPM Atrial Rate : 079 BPM P-R Int : 192 ms QRS Dur : 094 ms QT Int : 384 ms P-R-T Axes : 068 033 045 degrees QTc Int : 440 ms Normal sinus rhythm Normal ECG Confirmed by SHARRI HERNANDEZ D.O. ([id number]), video effects editor NIDA FANG ([id number]) on 10/23/2018 12:02:26 PM Referred By: Confirmed By:SHARRI HERNANDEZ D.O.
--- NOTE | 2018-10-23 14:11 | PRG ---
DATE OF SERVICE: SUBJECTIVE: The patient remains on the surgical floor. He is status post fall from a roof sustaining multiple left rib fractures and hemopneumothorax that was treated with a right chest tube that was discontinued. On followup exams, it was noted that the patient had a reaccumulation of fluid suspected being retained hemothorax. The patient underwent evaluation by the Cardiovascular Surgical Service, who felt that the patient may benefit from a VATS procedure. The patient is currently planned for VATS procedure tomorrow. He will be made n.p.o. tonight. Otherwise, he has had no issues overnight. He has been working with Physical and Occupational Therapy. His pain is controlled. He is tolerating a diet. He does not report having a bowel movement yet. OBJECTIVE: VITAL SIGNS: Temperature is 98.1, heart rate 97, blood pressure 123/85, respirations 18, oxygen saturation 98% on room air. GENERAL: The patient is resting comfortably, sitting in the chair beside his bed. He had a likely discussion with Dr. Arevalo regarding his questionable liver masses and she explained he will likely need an outpatient MRI with and without contrast to better evaluate the lesions that were noted incidentally on his scans. There is a possibility that these are all posttraumatic and noncancerous, but again she emphasizes that the evaluation needs to be continued once he gets passed his acute problems. LUNGS: Clear to auscultation. Slightly diminished on the right consistent with his effusion. Tender to palpation consistent with his rib fractures. HEART: Regular rate and rhythm. ABDOMEN: Soft, flat, nontender with active bowel sounds. EXTREMITIES: Neurovascularly intact x4. LABORATORY FINDINGS: There are no labs reviewed this morning. RADIOGRAPHS: CT of the chest shows worsening of the right pleural effusion and improvement of the right pneumothorax. ASSESSMENT: 1. Status post ground level fall. 2. Probable retained right hemothorax. PLAN: Plan will be to continue supportive care. The patient will be made n.p.o. after midnight tonight with plans of going to the operating room tomorrow for a VATS procedure. The patient was evaluated with Dr. Arevalo during rounds this morning. Job ID: [id number]
[2018-10-23] MEDS ORDERED: Magnesium Citrate 300 ML BOT PO SCH (16:00)
--- NOTE | 2018-10-23 16:21 | CON ---
DATE OF CONSULTATION: TYPE OF CONSULTATION: GI consultation. REASON FOR CONSULTATION: There are some masses on his liver when he came in for trauma with the radiologist concern could be metastatic malignancy; however, there are very small and the radiologist did not think they could biopsy them. Mr. Nazario came in for trauma. He had fallen off a roof, where he was working that was on 10/18/2018 transverse fracture of thoracic spine and rib fractures, scapular fracture, right clavicular fracture, and flail segment of his chest and hemopneumothorax, lung laceration, and contusion. He also had peritoneal edema and hematoma. On his admission, CT scan of chest, abdomen, and pelvis, radiologist reported, central mesentery 4.9 x 2.8 cm in size with no extravasation, small amount of fluid adjacent to liver and spleen. There were multiple subcentimeter hypodensities slightly heterogeneous in the liver, largest was 1.9 cm in the posterior right lobe and 1.4 cm lesion within the medial segment of left hepatic lobe, and the radiologist concerned that these may represent metastatic disease. He also had a 2.9 cm lesion in the adrenal gland. I have been asked to evaluate him with regard to this. Presently, he is without complaints. He actually was getting ready to go home, but he has I guess residual hemothorax and he is going to have to stay here in the hospital. Prior to his trauma, he denies any change in appetite, change in bowel function, nausea, vomiting, any history of liver disease. REVIEW OF SYSTEMS: No history of hematemesis, melena, hematochezia, or ulcers. He has never had a screening colonoscopy. He is very depressed about three years ago he was drinking heavily before that, but has stopped drinking since that time. PAST HISTORY: None except for this admission. ALLERGIES: NO KNOWN DRUG ALLERGIES. FAMILY HISTORY: No known GI malignancies or liver disease. SOCIAL HISTORY: Lives with a female partner, many years. He is a nonsmoker, nondrinker at this time. Does not use drugs. HOME MEDICATIONS: None. PRESENT MEDICATIONS: 1. Tylenol. 2. DuoNeb. 3. Norvasc. 4. Flexeril. 5. D5W. 6. Benadryl. 7. Pepcid. 8. Neurontin. 9. Glucagon. 10. Motrin. 11. Lactulose. 12. Narcan p.r.n. 13. Zofran p.r.n. 14. MiraLAX p.r.n. 15. Phenergan p.r.n. 16. Senokot p.r.n. 17. Ultram p.r.n. PHYSICAL EXAMINATION: VITAL SIGNS: Temperature is 97.4, pulse is in the 70s, and blood pressure 186/98. GENERAL: He is resting comfortably in bed. Oropharynx, no lesions. NECK: Supple. No adenopathy. LUNGS: Clear. HEART: Regular rate and rhythm. He has deformity of the right chest and right shoulder. EXTREMITIES: No clubbing, cyanosis, or edema. LYMPH NODES: There is no supra or any lavicular adenopathy. There is no evidence of inguinal adenopathy. There is no overt evidence of skin lesions. LABORATORY DATA: White count 8.3 yesterday, hemoglobin 9.7, and platelet count 268. On admission, his hemoglobin was 13.1. Chemistries notable for normal profile. AST and ALT have come down to 41 and 93 from 319 and 298 on admission on the . CEA was drawn at 0.9. Alpha-fetoprotein is pending. A repeat CAT scan with three-phase contrast was ordered yesterday to re-evaluate the lesions and the adrenal lesion, but this is pending. ASSESSMENT: Several lesions in the liver just under 2 cm in size. The radiologist concerned these represent metastatic disease. He has no symptoms or findings to suggest primary malignancy with metastasis to the liver presently. He has no previous imaging to compare to. These could be benign lesions, this could be related to his trauma. This could be malignant lesions of primary or metastatic type. The idea of work with these will be biopsy this as there is no primary that is noted. It would be quite atypical for metastatic malignancy of the liver to present the patient asymptomatic. We will review films tomorrow with radiologist to see if they are amenable to biopsy. We will set that up for later in the week. If these are not amenable to biopsy, then the idea would be to re-scan him in 6 weeks to see if they have grown in size. At this time, he is not a candidate for any endoscopy to evaluate the GI tract as he has got hemopneumothoraces and had a flail chest, he is still recovering from. He is not a candidate for elective sedative procedure. We will follow along with you. Job ID: [id number]
[2018-10-24] MEDS: Ibuprofen 800 MG TAB PO SCH ×5 (00:54→23:20)
[2018-10-24] MEDS: traMADol HCl 50 MG TAB PO SCH ×4 (03:01→20:42)
[2018-10-24] MEDS: Acetaminophen 325 MG TAB PO SCH ×4 (03:01→20:42)
[2018-10-24 06:59] LABS: #Eosinphils 0.2 thou/uL (0.0-0.7); #Lymphocytes 0.7 thou/uL (1.20-3.40); #Monocytes 0.8 thou/uL (0.11-0.59); #Neutrophils 7.7 thou/uL (1.40-6.50); %Basophils 0.4 % (0.0-1.0); %Eosinophils 1.7 % (0.0-10.0); %Lymphocytes 7.9 % (21.0-51.0); %Monocytes 8.6 % (0.0-10.0); %Neutrophils 81.5 % (42.0-75.0); Hemoglobin 9.7 g/dL (14.0-18.0); Mean Corpuscular HGB CONC 32.2 g/dL (32.0-36.0); Mean Corpuscular Hemoglobin 29.4 pg (27.0-31.0); Mean Corpuscular Volume 91.3 fL (78.0-98.0); Mean Platelet Volume 6.9 fL (7.4-10.4); Platelet Count 427 thou/uL (130-400); RBC Distribution Width 14.3 % (11.5-14.5); Red Blood Cell (RBC) Count 3.29 mill/uL (4.70-6.10); White Blood Cell (WBC) Count 9.4 thou/uL (4.8-10.8)
[2018-10-24 07:19] LABS: Anion Gap 12 mmol/L (10-20); BUN (Urea Nitrogen) 11 mg/dL (8.4-25.7); Calc. Creatinine Clearance 151 mL/min (70-130); Calcium 8.8 mg/dL (7.8-10.44); Carbon Dioxide 29 mmol/L (23-31); Chloride 101 mmol/L (98-107); Estimated GFR-MDRD Greater than 90; Glucose 102 mg/dL (80-115); Magnesium 2.4 mg/dL (1.6-2.6); Phosphorus 3.4 mg/dL (2.3-4.7); Potassium 4.3 mmol/L (3.5-5.1); Sodium 138 mmol/L (136-145)
[2018-10-24] MEDS: Gabapentin 300 MG CAP PO SCH ×3 (08:43→20:43)
[2018-10-24] MEDS: Famotidine 20 MG TAB PO SCH ×2 (08:43→20:42)
[2018-10-24] MEDS: Docusate 100 MG CAP PO SCH ×2 (08:43→20:43)
[2018-10-24] MEDS: Amlodipine 10 MG TAB PO SCH (08:43)
[2018-10-24] MEDS: Senokot S 8.6-50 MG TAB PO SCH ×2 (08:43→20:42)
[2018-10-24] MEDS: Polyethylene Glycol 3350 17 GM Packet PO SCH (08:44)
[2018-10-24] MEDS ORDERED: Fentanyl 250 MCG/5 ML VIAL ONE (09:15)
[2018-10-24] MEDS ORDERED: Midazolam HCl 2 mg/2 ml Vial ONE (09:15)
[2018-10-24] MEDS ORDERED: Phenylephrine HCL 10 MG/ML VIAL ONE (09:15)
[2018-10-24] MEDS ORDERED: Lidocaine 2% Jelly 5 ML TUBE ONE (09:16)
[2018-10-24] MEDS ORDERED: Bupivacaine HCl 0.5%/Epinephrine 1:200,000/PF 30 ml Vial ONE (10:27)
[2018-10-24] MEDS ORDERED: Fentanyl 100 MCG/2 ML VIAL ONE ×2 (11:39→13:55)
[2018-10-24] MEDS ORDERED: HYDROmorphone 2 MG/ML VIAL ONE (11:39)
--- NOTE | 2018-10-24 14:26 | PRG ---
DATE OF SERVICE: 10/24/2018 SUBJECTIVE: Mr. Nazario is getting thoracoscopy done today. He is in the OR. I did review his films with Radiology. Dr. Wilson felt that the liver lesions that we seen on the three phase contrast CAT scan could be biopsied with ultrasound guidance. RECOMMENDATIONS: Ultrasound-guided biopsy of liver lesion before the patient is discharged after he recovers from his thoracoscopy. We will defer to Trauma Service. I have talked with the Trauma PA and attending regarding these issues. We will follow from this. Job ID: [id number]
[2018-10-24] MEDS ORDERED: Promethazine HCl 25 MG/ML VIAL IM PRN (14:42)
[2018-10-24] MEDS ORDERED: HYDROcodone/Acetaminophen 5/325 mg Tablet PO PRN (14:42)
[2018-10-24] MEDS ORDERED: Ondansetron PF 4 MG/2 ML Vial IVP PRN (14:42)
[2018-10-24] MEDS ORDERED: Fentanyl 100 MCG/2 ML VIAL SLOW IVP PRN ×2 (14:42)
--- NOTE | 2018-10-24 15:06 | PRG ---
DATE OF SERVICE: 10/24/2018 SUBJECTIVE: The patient remains on the surgical floor. He has currently been n.p.o., awaiting to go to the operating room for his VATS procedure. The patient had no issues overnight. States his pain is controlled and he is anxiously awaiting for his procedure. OBJECTIVE: VITAL SIGNS: Temperature is 98.4, heart rate 93, blood pressure 137/90, respirations 16, and oxygen saturation 97% on room air. GENERAL: The patient is awake, alert, and oriented x3. Appears in no distress. LUNGS: Clear on the left, diminished on the right. HEART: Regular rate and rhythm. ABDOMEN: Soft, flat, and nontender with active bowel sounds. EXTREMITIES: Neurovascularly intact x4. LABORATORY FINDINGS: White blood cell count 9.4, hemoglobin 9.7, hematocrit 30, and platelets 427. Sodium 138, potassium 4.3, chloride 101, CO2 of 29, BUN 11, creatinine 0.70, magnesium 2.4, phosphorus 3.4, and glucose 102. There are no radiographs to review this morning. ASSESSMENT: 1. Status post ground level fall. 2. Probable retained right hemothorax. PLAN: Plan will be to continue supportive care and we will await determination of findings after the VATS. Job ID: [id number]
--- NOTE | 2018-10-24 15:12 | RAD ---
PORTABLE AP CHEST RADIOGRAPH: Date: 10-24-18 History: Post-surgical procedure. Comparison: 10-22-18 FINDINGS: Two right sided thoracostomy tubes are now noted in place and the tip of each thoracostomy tube overl ies the right upper lung zone/right lung apex. There is a pleural based density seen on the right gre ater superiorly and lateral aspect right upper lung zone which may be related to a small amount of pl eural fluid. Multiple displaced right sided rib fractures are seen with comminuted and displaced righ t clavicle fracture again visualized. There is atelectasis at the right lung with hazy increased dens ity in the right lung base which could related to contusion and/or atelectasis. Fracture involving the bodies of the right scapula is visualized. There is atelectasis at the left lung base. The left lung is otherwise clear. Cardiac silhouette, pul monary vasculature are within normal limits. IMPRESSION: 1. Two right sided thoracostomy tubes noted in place with pleural based density in the right lung ape x along the lateral right upper lung zone which may be related to residual pleural fluid. Hazy and pa tchy density at the right mid lung zone and right lung base may be related to atelectasis and/or cont usion. 2. Atelectasis left lung base. 3. Multiple displaced right sided rib fractures as well as right clavicle and right scapular fracture s. POS: [facility]
[2018-10-24] MEDS: Sodium Chloride 0.9% 1,000 ML IV SCH (15:19)
--- NOTE | 2018-10-24 16:12 | RAD ---
CHEST ONE VIEW: 10/24/18 HISTORY: Thoracotomy. COMPARISON: Radiograph prior day. FINDINGS: Two right sided thoracostomy tubes are similar. Trace right apical pneumothorax. There is moderate si zed right effusion. Multiple right sided rib fractures. Atelectatic changes left lung base. IMPRESSION: Similar exam of the chest. POS: [facility]
[2018-10-24] MEDS: Cyclobenzaprine 10 MG TAB PO PRN (16:44)
[2018-10-24] MEDS ORDERED: Ketorolac Tromethamine 30 MG/ML VIAL IVP SCH (16:45)
[2018-10-24] MEDS ORDERED: Dexamethasone 20 MG/5 ML VIAL ONE (18:26)
[2018-10-24] MEDS ORDERED: Lidocaine 1% PF 5 ML VIAL ONE (18:26)
[2018-10-24] MEDS ORDERED: Ondansetron PF 4 MG/2 ML Vial ONE (18:26)
[2018-10-24] MEDS ORDERED: Glycopyrrolate 0.2 MG/ML 5 ML SYRINGE ONE (18:26)
[2018-10-24] MEDS ORDERED: PROPOFOL 200 MG/20 ML VIAL ONE (18:26)
[2018-10-24] MEDS: HYDROcodone/Acetaminophen 5/325 mg Tablet PO PRN (18:36)
--- NOTE | 2018-10-24 18:52 | OP ---
DATE OF PROCEDURE: 10/24/2018 PROCEDURES PERFORMED: Right thoracoscopy converted to mini thoracotomy, drainage of pleural effusion, repair of right hemidiaphragm, excisional biopsy of liver nodule, and multiple intercostal rib blocks. PREOPERATIVE DIAGNOSIS: Retained hemothorax, status post blunt trauma. POSTOPERATIVE DIAGNOSIS: Right hemidiaphragm rupture. ANESTHESIA: General endotracheal anesthesia. INDICATIONS: The patient is a 63-year-old man with minimal past medical history , who sustained multiple rib fractures, scapular fracture, and a clavicular fracture on the right side when he fell from a roof. CT scanning that was part of a trauma surveillance demonstrated a right-sided pneumothorax, for which a chest tube was placed, but also showed multiple nodules in his liver. Shortly after removal of his chest tube, there was development of a large right pleural effusion and he is now taken to the operating room for drainage of a presumed retained hemothorax related to his rib fractures. FINDINGS: About a liter of thin bloody fluid within the chest, but no clot. There was about 6 cm long radially oriented complex laceration of the right diaphragm overlying the dome of the liver, where there was a capsular laceration involving about 3 or 4 mm firm nodule on the surface of the liver. NARRATIVE REPORT: After informed consent was obtained, the patient was taken to the operating room and placed in supine position on the operating table. After the induction of general anesthesia, the patient was turned into the left lateral decubitus position and his right chest was prepped and draped in sterile fashion. An incision was made slightly posterior to the posterior axillary line, few interspaces below the tip of the scapula. The electrocautery was used to carry the incision down to the muscle layer and then blunt dissection was used to enter the pleural space. The Yankauer sucker was used to evacuate thin bloody fluid from the chest cavity and then a thoracoscope port and scope were inserted. A brief survey of the chest cavity showed no nodular deposits within the chest cavity or any obvious parenchymal masses on the surface of the lung. There was obvious deformation of the rib cage in one area, where the lung posteriorly was densely adherent to the chest what appeared to represent 1 of his multiple rib fracture sites. Inferiorly, disruption of the contour and color and character of the diaphragm was appreciated, where it appeared to be somewhat corrugated, reddened , and raw with the appearance of granulation. An anticipated chest tube exit site was made low in the chest anteriorly and through that incision. Grasping forceps were inserted to gently probe that area and it could be appreciated then that it was indeed a localized rupture of the diaphragm. The port and scope were removed from the posterior incision, which was then extended anteriorly about a handbreadth. The fibers of the latissimus were split longitudinally along their course at the level of the port site and then superficially and deep. The latissimus was mobilized to allow for anterior retraction and extension of the intercostal incision for about a handbreadth. A Touffier retractor was inserted, which allowed for grasping the edges of the ruptured diaphragm. It can be appreciated through that tear on the diaphragm that immediately underlying it along the dome of the right lobe of the liver there was a capsular laceration measuring about 3 cm or so in size coursing immediately adjacent to a peripheral nodule that was firm in texture. Given the CT findings of multiple liver nodules of suspicious etiology, it was opted to excise this nodule. The electrocautery was used to wedge out that area in order to do so with minimal amount of bleeding. That excised tissue had considerable steven artifact to it, but was firm and appeared to completely excise that nodule, which was sent for Pathology. The biopsy bed was hemostatic. The Ethibond was then used to repair the diaphragm in 2 layers. The first being a running horizontal mattress and then the second layer a simple suture over that. The chest had been examined. No further injuries were noted. A 36-Bulgarian chest tubes were positioned anteriorly and posteriorly at the apex utilizing the original anterior incision for the posterior apical tube and an additional incision 1 interspace up in anterior from that for the anterior apical tube. These chest tubes were secured to the skin with suture, a single [id number] #1 Vicryl. Suture was placed around the ribs, where the intercostal incision had been made at a fracture point. The underlying edge of the serratus and then the latissimus were then reapproximated with #1 Vicryl. The developed subcutaneous space immediately superficial to the latissimus was drained with a 10-Bulgarian bulb suction drain and the subcutaneous tissue was closed over it with running Vicryl. The skin was closed with a Vicryl subcuticular suture and Steri-Strips. A 0.5% Marcaine with epinephrine was used to perform intercostal rib blocks, 2 interspaces below and 2 above the level of that incision. Additional Marcaine was infiltrated into the incision itself as well as the chest tube sites. The wound was dressed. The chest tubes were connected to close suction drainage. The patient was turned supine, awakened and extubated in the operating room and taken to the recovery area in stable condition. Job ID: [id number] MTDD
[2018-10-24] MEDS ORDERED: Zolpidem Tartrate 5 MG TAB PO PRN (19:26)
[2018-10-25] MEDS ORDERED: Sodium Chloride 0.9% 500 ML IVPB SCH (01:00)
[2018-10-25] MEDS: Sodium Chloride 0.9% 1,000 ML IV SCH (01:06)
[2018-10-25] MEDS: traMADol HCl 50 MG TAB PO SCH ×4 (03:31→20:39)
[2018-10-25] MEDS: Acetaminophen 325 MG TAB PO SCH ×4 (03:32→20:39)
[2018-10-25] MEDS: Ibuprofen 800 MG TAB PO SCH ×3 (06:36→17:47)
[2018-10-25] MEDS: Polyethylene Glycol 3350 17 GM Packet PO SCH (08:36)
[2018-10-25] MEDS: Senokot S 8.6-50 MG TAB PO SCH ×2 (08:39→20:40)
[2018-10-25] MEDS: Docusate 100 MG CAP PO SCH ×2 (08:39→20:40)
[2018-10-25] MEDS: Famotidine 20 MG TAB PO SCH ×2 (08:39→20:40)
[2018-10-25] MEDS: Amlodipine 10 MG TAB PO SCH (08:39)
[2018-10-25] MEDS: Gabapentin 300 MG CAP PO SCH ×3 (08:39→20:40)
--- NOTE | 2018-10-25 09:13 | RAD ---
CHEST 1 VIEW: Date: 10/25/18 HISTORY: Thoracotomy. COMPARISON: Radiograph from prior day. FINDINGS: Trace right apical pneumothorax. Multiple displaced right-sided rib fractures. Two right-sided thorac ostomy tubes are similar. Small left effusion and left basilar atelectasis. IMPRESSION: Similar examination of chest. POS: [facility]
--- NOTE | 2018-10-25 12:52 | PRG ---
DATE OF SERVICE: 10/25/2018 SUBJECTIVE: Korey Nazario is a 63-year-old male, who suffered a fall, suffered multiple rib fractures, healing pneumothorax, has undergone a right VATS procedure on 10/24/2018 and discovered to have ruptured diaphragm. His chest tube is watersealed by Dr. Mae this morning. The patient had a liver biopsy during that operation and biopsy reports are pending. If this biopsy is negative, he will need to have a CT-guided biopsy. We will await this liver biopsy performed during repair of his diaphragm and VATS. The patient is doing well. He is sore. He reports some difficulty voiding. He has been bladder scanned, having 400 in his bladder urinated and then having 100 to 150 left in his bladder. He reports past history of urination problems. PHYSICAL EXAMINATION: LUNGS: Clear to auscultation. CARDIAC: Regular rate and rhythm without murmur or gallop. ABDOMEN: Soft and nontender. EXTREMITIES: Unremarkable. ASSESSMENT AND PLAN: 1. Multiple right rib fractures, pain management. 2. Status post VATS procedure with right diaphragm repair and liver biopsy. 3. Infiltrative liver suspicion, await biopsy from VATS procedure and if this is nonrevealing, he may need interventional radiology guided biopsy prior to discharge. 4. Voiding difficulty, we will start Flomax. Continue monitoring his urination. Hopefully, the patient will be ready for discharge in the next 24 to 48 hours. Job ID: [id number]
--- NOTE | 2018-10-25 17:25 | PRG ---
DATE OF SERVICE: 10/25/2018 FOLLOWUP SUBJECTIVE: Mr. Nazario is resting in bed. He has lot of bandage on his chest. He had a VATS, thoracotomy yesterday. OBJECTIVE: VITAL SIGNS: His temperature is 98.4, pulse 118, blood pressure is 137/91. ABDOMEN: Nontender. ASSESSMENT: In regard to his liver mass, Dr. Jalloh called me yesterday noted that there was a nodule on the liver surface which he removed by cautery excision and submitted to Pathology. I talked with the Trauma Team and we both recommended waiting until that pathology comes back. If it is nondiagnostic, then Dr. Wilson indicated they thought they could get a needle biopsy of his liver. We will at this time follow from a distance and defer to the Trauma Service when he is felt to be stable from their standpoint to undergo liver biopsy if needed. Otherwise, we will wait for the Pathology to come back from the specimen the cardiothoracic surgeon took. Job ID: [id number]
[2018-10-25] MEDS: Cyclobenzaprine 10 MG TAB PO PRN (20:40)
[2018-10-26] MEDS: Ibuprofen 800 MG TAB PO SCH ×5 (00:23→23:08)
[2018-10-26] MEDS: traMADol HCl 50 MG TAB PO SCH ×5 (03:49→23:08)
[2018-10-26] MEDS: Acetaminophen 325 MG TAB PO SCH ×4 (03:50→20:17)
[2018-10-26] MEDS: Cyclobenzaprine 10 MG TAB PO PRN (06:02)
[2018-10-26 07:43] LABS: #Eosinphils 0.1 thou/uL (0.0-0.7); #Lymphocytes 0.5 thou/uL (1.20-3.40); #Neutrophils 13.1 thou/uL (1.40-6.50); %Basophils 0.1 % (0.0-1.0); %Eosinophils 0.5 % (0.0-10.0); %Lymphocytes 3.1 % (21.0-51.0); %Monocytes 6.8 % (0.0-10.0); %Neutrophils 89.5 % (42.0-75.0); Hemoglobin 9.2 g/dL (14.0-18.0); Mean Corpuscular HGB CONC 32.8 g/dL (32.0-36.0); Mean Corpuscular Hemoglobin 30.6 pg (27.0-31.0); Mean Corpuscular Volume 93.5 fL (78.0-98.0); Platelet Count 346 thou/uL (130-400); RBC Distribution Width 14.5 % (11.5-14.5); White Blood Cell (WBC) Count 14.7 thou/uL (4.8-10.8)
[2018-10-26 08:05] LABS: Anion Gap 14 mmol/L (10-20); BUN (Urea Nitrogen) 14 mg/dL (8.4-25.7); Calc. Creatinine Clearance 143 mL/min (70-130); Calcium 8.4 mg/dL (7.8-10.44); Carbon Dioxide 26 mmol/L (23-31); Chloride 100 mmol/L (98-107); Estimated GFR-MDRD Greater than 90; Glucose 103 mg/dL (80-115); Magnesium 2.1 mg/dL (1.6-2.6); Phosphorus 2.8 mg/dL (2.3-4.7); Sodium 135 mmol/L (136-145)
[2018-10-26] MEDS: Polyethylene Glycol 3350 17 GM Packet PO SCH (08:22)
[2018-10-26] MEDS: Gabapentin 300 MG CAP PO SCH ×3 (08:23→20:17)
[2018-10-26] MEDS: Senokot S 8.6-50 MG TAB PO SCH ×2 (08:23→20:17)
[2018-10-26] MEDS: Amlodipine 10 MG TAB PO SCH (08:23)
[2018-10-26] MEDS: Tamsulosin HCl 0.4 MG CAP PO SCH (08:23)
[2018-10-26] MEDS: Famotidine 20 MG TAB PO SCH ×2 (08:24→20:17)
[2018-10-26] MEDS: Docusate 100 MG CAP PO SCH ×2 (08:24→20:17)
--- NOTE | 2018-10-26 09:22 | RAD ---
CHEST ONE VIEW: HISTORY: Thoracotomy. COMPARISON: Radiograph from the prior day. FINDINGS: Two right thoracostomy tubes are similar. Large, layering right effusion. Moderate atelectasis, lef t lung base. Multiple right-sided rib fractures. Right mid clavicular fracture. IMPRESSION: No significant change in the radiograph appearance of the chest. POS: [facility]
[2018-10-26] MEDS: HYDROcodone/Acetaminophen 5/325 mg Tablet PO PRN ×3 (15:01→23:50)
--- NOTE | 2018-10-26 20:09 | PRG ---
DATE OF SERVICE: 10/26/2018 SUBJECTIVE: The patient is currently on the surgical floor. He is status post a VATS procedure and has been to water-seal. Since yesterday, he is doing well. He is out of bed to chair and awaiting Physical Therapy to walk him. He states he is tolerating a diet. His pain is controlled. PHYSICAL EXAMINATION: VITAL SIGNS: Temperature is 98.5, heart rate 110, blood pressure 123/70, respirations 20, and oxygen saturation 95% on 3 L via nasal cannula. GENERAL: The patient is resting comfortably in the bedside chair. He is currently undergoing a breathing treatment, who appears comfortable. He is alert and oriented x3. Artie Coma Scale is 15. HEENT: Unremarkable. LUNGS: Clear to auscultation with good inspiratory and expiratory effort. HEART: Tachycardic with regular rhythm. ABDOMEN: Soft, flat, nontender with active bowel sounds. EXTREMITIES: Neurovascularly intact x4. LABORATORY FINDINGS: White blood cell count 14.7, hemoglobin 9.2, hematocrit 28.1, and platelets 346. Sodium 135, potassium 5.0, chloride 100, CO2 of 26, BUN 14, creatinine 0.74, glucose 103, magnesium 2.1, and phosphorus 2.8. RADIOGRAPHS: Chest x-ray shows no significant change in the radiographic appearance of the chest. ASSESSMENT: 1. Status post fall. 2. Multiple right-sided rib fractures. 3. Status post video-assisted thoracoscopic surgery procedure. PLAN: Plan will be to continue supportive care, chest tube care per Cardiovascular Surgery. Continue pulmonary toilet. Encourage p.o. diet. It was discussed with the patient that the nodule that was excised from his liver came back benign. Per discussion with Dr. Funes, he recommends that we still obtain one more biopsy once the patient is stabilized from his VATS procedure. Job ID: [id number]
[2018-10-27] MEDS: traMADol HCl 50 MG TAB PO SCH ×4 (03:17→22:56)
[2018-10-27] MEDS: Acetaminophen 325 MG TAB PO SCH ×4 (03:22→20:15)
[2018-10-27] MEDS: Ibuprofen 800 MG TAB PO SCH ×4 (06:32→23:01)
[2018-10-27] MEDS: Tamsulosin HCl 0.4 MG CAP PO SCH (07:32)
[2018-10-27] MEDS: Amlodipine 10 MG TAB PO SCH (07:33)
[2018-10-27] MEDS: Senokot S 8.6-50 MG TAB PO SCH ×2 (07:33→20:23)
[2018-10-27] MEDS: Famotidine 20 MG TAB PO SCH ×2 (07:33→20:23)
[2018-10-27] MEDS: Polyethylene Glycol 3350 17 GM Packet PO SCH (07:34)
[2018-10-27] MEDS: Gabapentin 300 MG CAP PO SCH ×3 (07:34→20:23)
[2018-10-27] MEDS: Docusate 100 MG CAP PO SCH ×2 (07:34→20:21)
--- NOTE | 2018-10-27 10:36 | RAD ---
PORTABLE AP CHEST XRAY: DATE: 10/27/2018. HISTORY: Post thoracotomy. COMPARISON: 10/26/2018. FINDINGS: Two right-sided thoracostomy tubes remain in place. There is generalized volume loss right hemithora x with pleural fluid along the right lateral hemithorax similar to the prior study. Multiple displac ed right-sided rib fractures are seen. Comminuted fracture right clavicle is present. There is atel ectasis present at the left lung base. Cardiac silhouette is within normal limits. There has been n o significant interval change from the prior exam. IMPRESSION: Stable chest. POS: [facility]
[2018-10-27] MEDS: HYDROcodone/Acetaminophen 5/325 mg Tablet PO PRN ×3 (11:24→20:23)
[2018-10-27] MEDS ORDERED: Furosemide 20 MG TAB PO SCH (12:00)
--- NOTE | 2018-10-27 20:28 | PRG ---
DATE OF SERVICE: 10/27/2018 SUBJECTIVE: The patient is currently on the surgical floor. He is status post VATS procedure which went well. He has been water-seal. He is doing well overnight. He is tolerating a diet. He is progressing with physical and occupational therapy and is tolerating a diet. PHYSICAL EXAMINATION: VITAL SIGNS: Temperature is 98.4, heart rate 115, blood pressure 126/78, respirations 16, oxygen saturation 97% on room air. GENERAL: The patient is resting comfortably. He has been working with physical and occupational therapy. He was actually just returning while ambulating with physical therapy. HEENT: Unremarkable. LUNGS: Clear to auscultation with good inspiratory and expiratory effort. HEART: Regular rate and rhythm. ABDOMEN: Soft, flat, and nontender with active bowel sounds. EXTREMITIES: Neurovascularly intact x4. Chest remains to water-seal. LABORATORY DATA: There is no labs to review this morning. RADIOGRAPHS: AP chest shows stable chest. ASSESSMENT: 1. Status post fall. 2. Multiple right-sided rib fracture. 3. Status post video-assisted thoracoscopic surgery procedure. PLAN: Plan will be to continue physical and occupational therapy. Chest tube care per Cardiovascular Surgery. The patient's abnormalities on his liver that showed a benign sample that was obtained during his VATS procedure. The patient's case was discussed with Radiology to see if they could do another biopsy, sent it for confirmation using CT guidance. Dr. Moraes will discuss this with one of the other interventional radiologists to see if they can access any of the nodules, most are not in vary. Good physician for CT guidance. They will discuss it and give us their input. Job ID: [id number]
[2018-10-27] MEDS: Bisacodyl 10 MG SUPP PR PRN (21:50)
[2018-10-28] MEDS: HYDROcodone/Acetaminophen 5/325 mg Tablet PO PRN ×6 (01:14→21:55)
[2018-10-28] MEDS: Acetaminophen 325 MG TAB PO SCH ×4 (03:27→21:04)
[2018-10-28] MEDS: traMADol HCl 50 MG TAB PO SCH ×4 (05:10→21:00)
[2018-10-28] MEDS: Ibuprofen 800 MG TAB PO SCH ×3 (05:10→17:32)
[2018-10-28] MEDS: Amlodipine 10 MG TAB PO SCH (07:44)
[2018-10-28] MEDS: Gabapentin 300 MG CAP PO SCH ×3 (07:44→20:57)
[2018-10-28] MEDS: Docusate 100 MG CAP PO SCH ×2 (07:44→20:57)
[2018-10-28] MEDS: Famotidine 20 MG TAB PO SCH ×2 (07:45→20:58)
[2018-10-28] MEDS: Cyclobenzaprine 10 MG TAB PO PRN (07:45)
[2018-10-28] MEDS: Tamsulosin HCl 0.4 MG CAP PO SCH (07:45)
[2018-10-28] MEDS: Senokot S 8.6-50 MG TAB PO SCH ×2 (07:45→20:57)
[2018-10-28] MEDS: Polyethylene Glycol 3350 17 GM Packet PO SCH (07:46)
--- NOTE | 2018-10-28 10:32 | RAD ---
CHEST 1 VIEW: HISTORY: Rib fractures. Followup. COMPARISON: 10/27/2018. FINDINGS: Cardiac silhouette is magnified by projection. Pulmonary vasculature unremarkable. Right thoracostomy tubes remain in good position without significant residual pneumothorax. Multiple right rib fractures and atelectasis of the right lung are similar in appearance to the previous stud y. Left lung remains well inflated. Right clavicle fracture is stable. IMPRESSION: Stable posttraumatic appearance of the chest. POS: [facility]
--- NOTE | 2018-10-28 17:18 | PRG ---
DATE OF SERVICE: 10/28/2018 SUBJECTIVE: The patient remains on the surgical floor, did well overnight except that he complained of increasing right shoulder pain. We have asked orthopedics to re-evaluate him again this morning. There was no report of fall or anything like that and the patient was ambulating with his walker without difficulty this morning. This morning, I had a lengthy conversation with the patient and his family there in regard to him taking his pain medication. The patient had a concern about addiction and it was explained the multi-pronged medications that we use to help necessitate less narcotic use, and that he needs this to be able to draw strongly on his incentive spirometry. The and daughter were very supportive of this information and again it was emphasized why in his current state, fixing his clavicle would not be advantageous, reiterating essentially what Orthopedics had told him. The patient reports that he is tolerating a diet. His bowel function has returned. PHYSICAL EXAMINATION: VITAL SIGNS: Temperature is 98.2, heart rate 100, blood pressure 137/84, respirations 20, oxygen saturation 97% on 2 L via nasal cannula. GENERAL: The patient is resting comfortably in his bedside chair. He is awake, alert, and oriented x3. Michelle Coma Scale is 15. The patient appears in no distress. While I was examining the patient, Dr. Guerrier entered the room to remove his chest tubes. EXTREMITIES: Neurovascularly intact x4. LABORATORY DATA: There are no labs to review this morning. IMAGING: AP chest radiograph shows stable posttraumatic appearance. ASSESSMENT: 1. Status post fall. 2. Status post multiple right rib fractures, right scapular fracture, right clavicle fracture. 3. Status post video-assisted thoracoscopic surgery procedure. PLAN: Plan will be to get a chest x-ray in the morning. Continue supportive care and await final disposition. Also this morning, it was discussed with the patient and the family, my discussion with the radiologist regarding attempts at doing a CT-guided liver biopsy. It was felt by Dr. Moraes and another radiologist, which he spoke to, that his lesions were not amenable to CT-guided biopsy and that the patient may, when he is able to tolerate lying in the MRI for extended period of time during that study to evaluate the nodules, and this would likely need to be done as an outpatient. Job ID: [id number]
[2018-10-28] MEDS: Bisacodyl 10 MG SUPP PR PRN (17:32)
[2018-10-29] MEDS: Ibuprofen 800 MG TAB PO SCH ×3 (01:03→11:41)
[2018-10-29] MEDS: HYDROcodone/Acetaminophen 5/325 mg Tablet PO PRN ×3 (02:14→11:39)
[2018-10-29] MEDS: Acetaminophen 325 MG TAB PO SCH ×2 (04:44→09:29)
[2018-10-29] MEDS: traMADol HCl 50 MG TAB PO SCH ×2 (05:22→09:52)
--- NOTE | 2018-10-29 08:39 | RAD ---
CHEST 1 VIEW: COMPARISON: 10/28/2018. HISTORY: Status post thoracotomy. FINDINGS: Interval removal of 2 right-sided chest tubes. Stable changes involving the right hemithorax. No pn eumothorax. IMPRESSION: Interval removal of right-sided chest tube. No pneumothorax. POS: [facility]
[2018-10-29] MEDS: Tamsulosin HCl 0.4 MG CAP PO SCH (09:26)
[2018-10-29] MEDS: Amlodipine 10 MG TAB PO SCH (09:26)
[2018-10-29] MEDS: Polyethylene Glycol 3350 17 GM Packet PO SCH (09:27)
[2018-10-29] MEDS: Senokot S 8.6-50 MG TAB PO SCH (09:27)
[2018-10-29] MEDS: Gabapentin 300 MG CAP PO SCH (09:27)
[2018-10-29] MEDS: Docusate 100 MG CAP PO SCH (09:28)
[2018-10-29] MEDS: Famotidine 20 MG TAB PO SCH (09:52)
[2018-10-29] MEDS ORDERED: Ketorolac Tromethamine 30 MG/ML VIAL IVP SCH (11:00)
[2018-10-29 12:11] VITALS: BP 105/74; TEMP 98.2
== END 2018-10-29 14:07 | disposition home or self-care (01) | DRG 958 ==
LOC: ERS 10:56 → CCU 15:02 → SURG A 10-19 16:13
PROVIDERS: ADMIT Surgery; ATTEND Surgery
PROC: 0W9930Z Drainage of Right Pleural Cavity with Drainage Device, Percutaneous Approach (ICD-10-PCS; 2018-10-18)
PROC: 0BQT0ZZ Repair Diaphragm, Open Approach (ICD-10-PCS; principal; 2018-10-24)
PROC: 0BJQ4ZZ Inspection of Pleura, Percutaneous Endoscopic Approach (ICD-10-PCS; 2018-10-24)
PROC: 0FB10ZX Excision of Right Lobe Liver, Open Approach, Diagnostic (ICD-10-PCS; 2018-10-24)
PROC: 0W9900Z Drainage of Right Pleural Cavity with Drainage Device, Open Approach (ICD-10-PCS; 2018-10-24)
DX: S27.2XXA Traumatic hemopneumothorax, initial encounter (principal); S22.009A Unspecified fracture of unspecified thoracic vertebra, initial encounter for closed fracture; S36.81XA Injury of peritoneum, initial encounter; S22.5XXA Flail chest, initial encounter for closed fracture; S27.331A Laceration of lung, unilateral, initial encounter; S32.029A Unspecified fracture of second lumbar vertebra, initial encounter for closed fracture; S32.039A Unspecified fracture of third lumbar vertebra, initial encounter for closed fracture; S27.321A Contusion of lung, unilateral, initial encounter; T79.7XXA Traumatic subcutaneous emphysema, initial encounter; S42.101A Fracture of unspecified part of scapula, right shoulder, initial encounter for closed fracture; S42.001A Fracture of unspecified part of right clavicle, initial encounter for closed fracture; W13.2XXA Fall from, out of or through roof, initial encounter; R73.9 Hyperglycemia, unspecified; D72.829 Elevated white blood cell count, unspecified; R09.02 Hypoxemia; K76.9 Liver disease, unspecified; Y92.008 Other place in unspecified non-institutional (private) residence as the place of occurrence of the external cause; R19.09 Other intra-abdominal and pelvic swelling, mass and lump
CPT/HCPCS: 36415; 70450; 71045; 71260; 72125; 72170; 74177; 74178; 80048; 80053; 82105; 82378; 83735; 84100; 85025; 86850; 86900; 86901; 88307; 88313; 90715; 93005; 94640; 96360; 96374; 96376; G0390; G8978-GP-CM; G8979-GP-CJ; G8987-GO-CK; G8988-GO-CI; J0670; J1100; J1170; J1642; J1885; J2001; J2250; J2270; J2370; J2405; J2704; J3010; J7620

== ENCOUNTER 2018-11-13 10:23 | Outpatient (CLI) | payer OTHER ==
--- NOTE | 2018-11-13 12:12 | RAD ---
CHEST TWO VIEWS: Comparison: 10-29-18 FINDINGS: There are chronic changes of the right hemithorax. There is compensatory mild hyperinflation of the l eft hemithorax. Cardiac silhouette is unchanged. No pneumothorax. No acute osseous abnormalities. IMPRESSION: No significant interval change. POS: [facility]
== END 2018-11-13 10:24 | disposition home or self-care (01) ==
LOC: RAD 10:23
PROVIDERS: ATTEND Thoracic Surgery (Cardiothoracic Vascular Surgery)
DX: J94.2 Hemothorax (principal)
CPT/HCPCS: 71046

== ENCOUNTER 2018-11-15 07:37 | Outpatient (CLI) | payer SELFPAY ==
[2018-11-15] MEDS ORDERED: Sodium Chloride 0.9% 15 ML NEB ONE (11:11)
--- NOTE | 2018-11-15 15:53 | HP ---
HISTORY OF PRESENT ILLNESS: Mr. Kj Isaacs is a very pleasant 63-year-old gentleman, who presents to the [facility] for evaluation of a wound of the right posterior chest subsequent to a mini-thoracotomy on 10/24/[address] Jalloh. The patient underwent drainage of a pleural effusion repair of the right hemidiaphragm and excisional biopsy of a liver nodule. Pathology returned negative for malignancy. At a followup visit with Dr. Jalloh, the wound was opened and the patient was referred to the Wound Center for the initiation of negative pressure therapy. PAST MEDICAL HISTORY: Hypertension. PAST SURGICAL HISTORY: Mini-thoracotomy as per HPI. MEDICATIONS: 1. Tamsulosin. 2. Gabapentin. 3. Amlodipine. 4. Ultram. 5. Cyclobenzaprine. 6. Hydrocodone. ALLERGIES: NO KNOWN DIAGNOSED ALLERGIES. SOCIAL HISTORY: Social history significant for the heavy consumption of alcohol in the past. The patient states he has not consumed any alcohol since May of 2015. FAMILY HISTORY: Family history is significant for coronary artery disease. Family history is negative for diabetes mellitus. REVIEW OF SYSTEMS: The patient has no history of tobacco use. PHYSICAL EXAMINATION: VITAL SIGNS: Temperature 97.4, pulse 115, respirations 19, and blood pressure 129/79. GENERAL: A 63-year-old gentleman, sitting on chair in examination room, in no acute distress. HEENT: Normocephalic and atraumatic. NECK: No nuchal rigidity. CHEST: Clear to auscultation. A wound of the right posterior chest is present, which measures approximately 0.3 x 7.0 cm. No purulent drainage is associated with the wound. No erythema of the skin surrounding the wound is present. No maceration of the skin of the periwound is noted. ABDOMEN: Soft. EXTREMITIES: No clubbing or cyanosis. NEUROLOGIC: Grossly nonfocal. ASSESSMENT AND PLAN: 1. Nonhealing surgical wound of right posterior chest, as described above. Negative pressure therapy will be initiated with dressing changes of the wound VAC here in the Wound Center. The patient will be seen by Dr. Jalloh in approximately 2 weeks. I will see Mr. Isaacs again in 3 weeks. No antibiotics will be prescribed today based upon the appearance of the wound. The patient understands and is in agreement with the preceding treatment plan. 2. Hypertension. Job ID: [id number]
== END 2018-11-15 07:38 | disposition home or self-care (01) ==
LOC: WCC 07:37
PROVIDERS: ATTEND Family Medicine
DX: S21.101D Unspecified open wound of right front wall of thorax without penetration into thoracic cavity, subsequent encounter (principal); I10 Essential (primary) hypertension
CPT/HCPCS: A4218

== ENCOUNTER 2018-11-19 08:56 | Outpatient (CLI) | payer SELFPAY ==
[2018-11-19] MEDS ORDERED: Sodium Chloride 0.9% 15 ML NEB ONE (11:11)
== END 2018-11-19 08:57 | disposition home or self-care (01) ==
LOC: WCC 08:56
PROVIDERS: ATTEND Family Medicine
DX: T81.89XD Other complications of procedures, not elsewhere classified, subsequent encounter (principal)
CPT/HCPCS: 97605; A4218

== ENCOUNTER 2018-11-22 13:02 | Outpatient (CLI) | payer SELFPAY ==
[2018-11-22] MEDS ORDERED: Sodium Chloride 0.9% 15 ML NEB ONE ×2 (15:58→19:54)
== END 2018-11-22 13:03 | disposition home or self-care (01) ==
LOC: WCC 13:02
PROVIDERS: ATTEND Family Medicine
DX: T81.89XD Other complications of procedures, not elsewhere classified, subsequent encounter (principal)
CPT/HCPCS: 97605; A4218

== ENCOUNTER 2018-11-26 13:37 | Outpatient (CLI) | payer OTHER, SELFPAY ==
[2018-11-26] MEDS ORDERED: Sodium Chloride 0.9% 15 ML NEB ONE (15:00)
== END 2018-11-26 13:38 | disposition home or self-care (01) ==
LOC: WCC 13:37
PROVIDERS: ATTEND Family Medicine
DX: T81.89XD Other complications of procedures, not elsewhere classified, subsequent encounter (principal)
CPT/HCPCS: 97605; A4218

== ENCOUNTER 2018-11-29 13:33 | Outpatient (CLI) | payer OTHER, SELFPAY ==
[2018-11-29] MEDS ORDERED: Sodium Chloride 0.9% 15 ML NEB ONE (15:00)
== END 2018-11-29 13:34 | disposition home or self-care (01) ==
LOC: WCC 13:33
PROVIDERS: ATTEND Family Medicine
DX: T81.89XD Other complications of procedures, not elsewhere classified, subsequent encounter (principal)
CPT/HCPCS: 97605; A4218

== ENCOUNTER 2018-12-03 12:59 | Outpatient (CLI) | payer OTHER, SELFPAY ==
[2018-12-03] MEDS ORDERED: Sodium Chloride 0.9% 15 ML NEB ONE (15:00)
== END 2018-12-03 13:00 | disposition home or self-care (01) ==
LOC: WCC 12:59
PROVIDERS: ATTEND Family Medicine
DX: T81.89XD Other complications of procedures, not elsewhere classified, subsequent encounter (principal)
CPT/HCPCS: 97605; A4218

== ENCOUNTER 2018-12-06 16:00 | Outpatient (CLI) | payer OTHER, SELFPAY ==
[~2018-12-06 16:00] MED LIST: Sodium Chloride 0.9% 15 ML NEB ONE
== END 2018-12-06 16:01 | disposition home or self-care (01) ==
LOC: WCC 16:00
PROVIDERS: ATTEND Family Medicine
DX: T81.89XD Other complications of procedures, not elsewhere classified, subsequent encounter (principal)
CPT/HCPCS: 97605; A4218

== ENCOUNTER 2018-12-10 14:17 | Outpatient (CLI) | payer OTHER, SELFPAY ==
--- NOTE | 2018-12-10 15:02 | PRG ---
DATE OF SERVICE: 12/10/2018 HISTORY: Mr. Kj Nazario is a very pleasant 63-year-old gentleman, who presents to the [facility]ound Center for evaluation of a wound of the right posterior chest subsequent to a mini-thoracotomy on 10/24/[address] Jalloh. The patient underwent drainage of a pleural effusion, repair of the right hemidiaphragm, and excisional biopsy of a liver nodule. Pathology returned negative for malignancy. At a followup visit with Dr. Jalloh, the wound was opened and the patient was referred to the Wound Center for the initiation of negative pressure therapy. PHYSICAL EXAMINATION: VITAL SIGNS: Temperature 97.8, pulse 106, and blood pressure 134/81. CHEST: A wound of the right posterior chest is present, which measures approximately 2.3 x 3.0 cm. Granulation tissue is present within the wound margins. No purulent drainage is associated with the wound. No erythema of the skin surrounding the wound is present. No maceration of the skin of the periwound is noted. ASSESSMENT AND PLAN: 1. Nonhealing surgical wound of right posterior chest, as described above. Negative pressure therapy will be continued with dressing changes of the wound VAC here in the Wound Center. I will see Mr. Nazario again in 2 weeks. The patient has an appointment with Dr. Jalloh on 01/03/2019. 2. Hypertension. Job ID: [id number]
== END 2018-12-10 14:18 | disposition home or self-care (01) ==
LOC: WCC 14:17
PROVIDERS: ATTEND Family Medicine
DX: T81.89XD Other complications of procedures, not elsewhere classified, subsequent encounter (principal); I10 Essential (primary) hypertension
CPT/HCPCS: 97605

== ENCOUNTER 2018-12-13 14:15 | Outpatient (CLI) | payer OTHER, SELFPAY ==
[2018-12-13] MEDS ORDERED: Sodium Chloride 0.9% 15 ML NEB ONE (15:00)
== END 2018-12-13 14:16 | disposition home or self-care (01) ==
LOC: WCC 14:15
PROVIDERS: ATTEND Family Medicine
DX: T81.89XD Other complications of procedures, not elsewhere classified, subsequent encounter (principal)
CPT/HCPCS: 97605; A4218

== ENCOUNTER 2019-01-08 21:59 | Inpatient (IN) | payer OTHER, SELFPAY ==
[2019-01-08 22:38] LABS: #Eosinphils 0.1 thou/uL (0.0-0.7); #Lymphocytes 1.5 thou/uL (1.20-3.40); #Monocytes 0.7 thou/uL (0.11-0.59); #Neutrophils 6.5 thou/uL (1.40-6.50); %Basophils 0.2 % (0.0-1.0); %Eosinophils 1.7 % (0.0-10.0); %Monocytes 7.4 % (0.0-10.0); %Neutrophils 73.7 % (42.0-75.0); Hemoglobin 9.6 g/dL (14.0-18.0); Mean Corpuscular HGB CONC 29.9 g/dL (32.0-36.0); Mean Corpuscular Volume 83.8 fL (78.0-98.0); Platelet Count 527 thou/uL (130-400); RBC Distribution Width 15.8 % (11.5-14.5); Red Blood Cell (RBC) Count 3.81 mill/uL (4.70-6.10); White Blood Cell (WBC) Count 8.8 thou/uL (4.8-10.8)
[2019-01-08 22:52] LABS: ALT (SGPT) 18 U/L (8-55); AST (SGOT) 15 U/L (5-34); Albumin 3.5 g/dL (3.4-4.8); Alkaline Phosphatase 129 U/L (40-150); Anion Gap 11 mmol/L (10-20); BUN (Urea Nitrogen) 10 mg/dL (8.4-25.7); Bilirubin, Total Less than 0.2 mg/dL (0.2-1.2); Calc. Creatinine Clearance 0 mL/min (70-130); Calcium 9.2 mg/dL (7.8-10.44); Carbon Dioxide 28 mmol/L (23-31); Chloride 104 mmol/L (98-107); Estimated GFR-MDRD Greater than 90; Globulin 3.9 g/dL (2.4-3.5); Glucose 112 mg/dL (80-115); Potassium 4.3 mmol/L (3.5-5.1); Protein, Total 7.4 g/dL (5.8-8.1); Sodium 139 mmol/L (136-145)
[2019-01-08 23:13] LABS: CKMB 1.5 ng/mL (0-6.6)
--- NOTE | 2019-01-08 23:18 | RAD ---
PA AND LATERAL CHEST X-RAY 01/08/19 HISTORY: Chest pain. COMPARISON: 11/13/18. FINDINGS: Again noted is deformity of the right chest wall with multiple displaced right sided rib fractures al so seen on prior exam with volume loss involving the right hemithorax. Pleural and parenchymal change s are seen at the right lung base which may be related to chronic lung changes. The left lung is cleo r. The cardiac silhouette and pulmonary vasculature are within normal limits. Remote fracture middle one third right clavicle is again present. Remote fracture and deformity of the right scapula is also again present. There has been no interval change from the prior exam. IMPRESSION: 1. No acute cardiopulmonary process. 2. Chronic changes right hemithorax with multiple remote fractures as described above, stable fr om prior exam. POS: [facility]
[2019-01-09 01:40] LABS: Troponin I 0.054 ng/mL (< 0.028)
[2019-01-09 04:05] LABS: Troponin I 0.056 ng/mL (< 0.028)
[2019-01-09] MEDS ORDERED: Iopamidol 370 76% 100 ML VIAL ONE (09:38)
--- NOTE | 2019-01-09 11:13 | HP ---
PRIMARY CARE PHYSICIAN: Milka Caraballo MD CHIEF COMPLAINT: Chest pain. HISTORY OF PRESENT ILLNESS: The patient is a 63-year-old male, who has intermittent chest pain on and off, going on since October. It is localized across the chest. He does not get short of breath when it happens. His skin does not get clammy. He does not have nausea or vomiting. The pain is a radiating to both shoulders, last approximately 1 hour and it gets resolved without any intervention. The pain is rated at 5 on a scale from 1 to 10. 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 At the time of my visit, the pain is gone. Apparently by the time he got to the emergency room, the pain was gone. PAST MEDICAL HISTORY: Trauma to the right lung post fall in September 2018, resulted in fracture of 7 ribs, status post thoracostomy. PAST SURGICAL HISTORY: As above. SOCIAL HISTORY: He denies any alcohol intake, cigarette smoking, or use of any illicit drugs. MEDICATIONS: 1. Gabapentin 300 mg 3 times a day. 2. Prilosec 20 mg daily. 3. Docusate sodium 100 mg once a day. 4. Aspirin 81 mg once a day. 5. Isosorbide mononitrate 30 mg once a day. 6. Ranitidine 150 mg once a day. 7. Folic acid 1 a day, 1 mg. 8. Metoprolol tartrate 25 mg once a day. 9. Cyclobenzaprine 25 mg twice a day. 10. Wilton 5/325 mg 1 to 2 tablets every 4 hours p.r.n. as needed. 11. Motrin 400 mg, unknown frequency. 12. Tamsulosin 0.4 mg 1 tablet at bedtime. 13. Claritin 10 mg once a day. ALLERGIES: NONE. FAMILY HISTORY: Mother of natural causes at the age of 96. Father of heart attack when he was in his 70s. Surrogate decision maker is Madhuri, the patient's friend and PCP is Dr. Milka Caraballo from [facility]. REVIEW OF SYSTEMS: CONSTITUTIONAL: Negative for fever and chills. EYES: Negative for eye pain and discharge. ENT: Negative for nasal congestion and epistaxis. CARDIOVASCULAR: Positive for chest pain. Negative for palpitation. RESPIRATORY: Negative for shortness of breath. Negative for cough. GI: Negative for nausea and vomiting. : Negative for hematuria or dysuria. SKIN: Negative for erythema and skin rash. NEUROLOGIC: Negative for headaches or dizziness. HEMOLYMPHATIC: Negative for easy bruising and clotting abnormalities. PSYCHIATRIC: Negative for homicidal or suicidal ideations. LABORATORY DATA: Labs showed white count of 8.8, hemoglobin 9.6, hematocrit 31.9, platelet count is 527,000, and 73.7 neutrophils. Chemistry showed globulin 3.9 and the rest of chemistry is within normal limits. He has normal kidney function. He had 3 troponins drawn and it came back at 0.039, 0.054, and 0.056. His BNP is up to 559.3. EKG showed normal sinus rhythm with ventricular rate of 95 beats per minute with an incomplete right bundle-branch block and inverted T-waves in almost all precordial leads. Chest x-ray personally reviewed by me showed chronic changes from previous trauma to the right side of the chest. Multiple displaced right-sided rib fractures and decreased volume involving the right hemothorax. Pleural and parenchymal changes at the right lung base. The left lung is clear. Cardiac silhouette and pulmonary vascular within normal limits. There is a status post right clavicle fracture. IMPRESSION: 1. Remote chest pain resolved and the patient was supposed to have cardiac catheterization done by Dr. Denise, so that is the main purpose why he is getting admitted to the hospital for this procedure. At this point, he is stable. We will keep him n.p.o. for possible procedure this morning. 2. Normocytic anemia. 3. Elevated troponins x3 probably some nondemand ischemia status post trauma of the right chest and right lung status post ostomy in September 2018. PLAN: Plan is admission for observation. Condition is fair. Activity, bedrest and bathroom privileges. IV normal saline at 100 mL/h. The patient received aspirin and he is taking aspirin at home daily. We will keep him n.p.o. for possible procedure this morning. We will get Dr. Denise on consult for Cardiology evaluation. He will be on SCDs and Lovenox for DVT prophylaxis and will run iron studies. Job ID: [id number]
[2019-01-09 11:35] VITALS: BMI 23.6
[2019-01-09] MEDS: Sodium Chloride 0.9% 1,000 ML IV SCH (12:48)
[2019-01-09] MEDS ORDERED: Communication Order-Pharmacy FS SCH (13:30)
[2019-01-09] MEDS ORDERED: Midazolam HCl 2 mg/2 ml Vial ONE (13:57)
[2019-01-09] MEDS ORDERED: Fentanyl 100 MCG/2 ML VIAL ONE (13:57)
[2019-01-09] MEDS ORDERED: Sodium Chloride 0.9% 200 ML IV PRN (14:18)
[2019-01-09] MEDS ORDERED: Acetaminophen/Codeine 30-300mg Tablet PO PRN (14:18)
[2019-01-09] MEDS ORDERED: Nitroglycerin 0.4 MG TAB (25 Tab Bottle) SL PRN (14:18)
[2019-01-09] MEDS ORDERED: Cyclobenzaprine 10 MG TAB PO PRN (15:13)
[2019-01-09] MEDS ORDERED: HYDROcodone/Acetaminophen 5/325 mg Tablet PO PRN ×2 (15:13)
[2019-01-09] MEDS: Ibuprofen 800 MG TAB PO SCH (15:47)
[2019-01-09] MEDS ORDERED: Communication Order-Pharmacy FS ONE (15:57)
[2019-01-09] MEDS: Acetaminophen 325 MG TAB PO SCH (17:47)
[2019-01-09] MEDS: traMADol HCl 50 MG TAB PO SCH (17:47)
--- NOTE | 2019-01-09 17:47 | CON ---
DATE OF CONSULTATION: 01/09/2019 PRIMARY CARE PHYSICIAN: Dr. Milka Caraballo at the [facility]. CHIEF COMPLAINT: Chest pain. 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 He essentially had a flail chest with multiple rib fractures on the right side, a right scapular fracture as well as some relatively inconsequential vertebral fractures that do not affect the stability of his spine or have any neurologic compromise. When he developed right-sided effusion, it was assumed to be retained hemothorax, but at the time of exploration, it was found be fairly thin fluid and he had a rupture of his right hemidiaphragm, which was repaired through limited extension of the thoracoscopy port site. During the course of outpatient followup when I saw him in early November, he volunteered that he had been having chest pressure radiating to both shoulders and at that time, he had some shortness of breath associated with it. In retrospective, described symptoms, it may have represented mild exertional angina prior to his injury, but when he reported this to me in early November, he said that it had gotten to where he was having it quite frequently and with minimal of any exertion and in fact, the night before he had an episode at rest. He was seen as an outpatient by Dr. Denise and echocardiogram showed an LVEF of 35% to 40% with anterior and anteroseptal hypokinesis, and he was empirically started on Lopressor 25 mg b.i.d. and Imdur 30 mg a day. His anginal symptoms almost completely resolved on that by the time I saw him in followup about a week ago; however, he began having angina again and last night, had an episode bad enough to prompt presentation to the emergency room. His initial troponin was mildly elevated at 0.039 and his BNP was 559.3. His troponin feroz slightly over the next few hours to 0.054 at about one in the morning and 0.056 about a quarter till 3. Cardiac catheterization that was performed today showed a right-dominant system with serial high-grade lesions in the LAD just beyond large first diagonal that runs in ramus type position and isolating 2 small diagonals. His circumflex is essentially free of disease as is his left main, but there is disease of the right coronary crux primarily located in the origin of the PDA, but it also appears to compromise a fairly good size posterolateral branch. LVEF is mildly diminished at around 35% and 40% with inferior and inferior apical hypokinesis and near akinesis of the very apex. LV pressure was 132/-4 with an EDP of 17 and aortic pressure on pullback was 132/72 with a mean of 99. His past medical history is essentially noncontributory until his injury last [place] time. At that time, he was found to have multiple hepatic nodules. Biopsy of one that was seen through the diaphragmatic defect at the time of surgery last September just showed fibrotic changes. CURRENT HOME MEDICATIONS: 1. Imdur 30 mg a day. 2. Norvasc 10 mg a day. 3. Toprol-XL 25 mg b.i.d. 4. Prilosec 20 mg a day. 5. Folate 1 mg a day. 6. Colace 100 mg b.i.d. 7. Neurontin 300 mg b.i.d. 8. Motrin 800 mg q.6 hours. 9. Flexeril 10 mg t.i.d. p.r.n. 10. Tramadol 100 mg p.o. q.6 hours. 11. P.r.n. [place]. He has been started on 40 mg a day of subcu Lovenox for DVT prophylaxis. Protonix has been substituted for his Prilosec. ALLERGIES: HE DENIES ANY MEDICAL ALLERGIES. SOCIAL HISTORY: He does not smoke or drink. He is a vegetarian. FAMILY HISTORY: Significant for coronary artery disease in his father, who lived age 79. His mother lived age 95 with no significant medical problems beyond hypertension for much of her life. REVIEW OF SYSTEMS: Negative for any eye, speech, facial, or extremity symptoms consistent with TIAs. Negative for any claudication. He has lost weight since his injury and has had trouble regaining it. He has not had any blood in his stool that he recognizes as such. PHYSICAL EXAMINATION: GENERAL: He is a tall, thin man, obviously worried, but in no distress. He is 6 feet 2 inches, weighs 183.5 pounds. VITAL SIGNS: Heart rate 96, blood pressure 118/79, temperature is 97.3, and room air O2 saturations are 96%. HEENT: He has no xanthelasma. No JVD. No carotid bruits. CHEST: Clear to auscultation. He has a clean granulating wound on his right lateral chest wall from thoracotomy incision that developed a seroma that is being packed. He has some point tenderness in the lower right back. EXTREMITIES: He has palpable radial, femoral, and dorsalis pedis pulses. He is right-hand dominant. Lobito's testing on the left hand is equivocal. He has no clubbing, cyanosis, or edema. NEUROLOGIC: Grossly nonfocal. LABORATORY DATA: Laboratory exam shows a white count of 8.8, hemoglobin 9.6, hematocrit 31.9, platelets 527,000. His chemistries on admission showed normal electrolytes and glucose of 112, BUN 10, creatinine 0.72. LFTs were normal. Calcium was 9.2, albumin 3.5. Troponins were 0.039 at about 1030 hours last night, 0.054 about 1 o'clock this morning, and 0.056 at about a quarter till 3 this morning. BNP was 559.3. His chest x-ray shows the deformity related to his multiple right-sided rib fractures with some volume loss of the lung and some elevation of that diaphragm. There is no aortic knob calcification. The left diaphragm and costophrenic angle are sharp. Cardiac catheterization shows a left dominant system with serial high-grade lesions in the proximal portion of the mid LAD just beyond a fairly large first diagonal that comes off high and runs in a ramus OM1 type distribution. He has a normal left main and circumflex system. His dominant right coronary has a high-grade lesion in the origin of the PDA that appears somewhat compromised the posterolateral branch as well. IMPRESSION AND PLAN: Severe two-vessel coronary artery disease with mildly decreased LV function in a patient who has had recurrence of angina on medical management and perhaps non-Q-wave and [id number] myocardial infarction based on his enzymes. While I had hoped to be able to get him further out from his injury before having to do bypass surgery if necessary, I think he has declared himself is not being easy enough to manage medically to be able to accomplish that. I think he will be of acceptable risk, although, his recovery is certainly going to be more difficult than it would have been having not sustained the fall that he had last September. I am going to re-examine his Lobito's testing with plethysmography as well as Doppler examination of the hand and give consideration to using his left radial artery for one of his bypasses. Since at least historically, he has been a very fit man with minimal comorbidities. Job ID: [id number]
--- NOTE | 2019-01-09 20:55 | CON ---
DATE OF CONSULTATION: 01/09/2019 REASON FOR CONSULTATION: Chest pain. HISTORY OF PRESENT ILLNESS: Mr. Nazario is a pleasant 63-year-old white gentleman, who comes to the hospital for chest pain. He recently had a fall from a roof top and had problems with broken ribs and trauma to his lungs. He was following up with Dr. Jalloh in the office and complained about chest pain, which was consistent with angina, so I saw him in the office for this and put him on antianginal medications which made him have some improvement, however, this worsened recently. I offered a heart catheterization, but he is unable to afford this. At the time we upped his medications, did not improve his pain what is so bad that he decided to come in for further evaluation. Currently on my evaluation, he is pain free. PAST MEDICAL HISTORY: Status post recent fall with trauma to the right lung PAST SURGICAL HISTORY: Thoracotomy in September 2018. SOCIAL HISTORY: No alcohol, tobacco, or drugs. OUTPATIENT MEDICATIONS: Include: 1. Gabapentin. 2. Prilosec 20 mg a day. 3. Docusate. 4. Aspirin 81 a day. 5. Imdur 30 mg a day. 6. Ranitidine 150 mg b.i.d. 7. Folic acid. 8. Metoprolol tartrate 25 mg b.i.d. 9. Cyclobenzaprine 25 mg b.i.d. 10. Amigo p.r.n. 11. Motrin. 12. Tamsulosin. 13. Iron. ALLERGIES: NO KNOWN DRUG ALLERGIES. FAMILY HISTORY: Father with an MN in his mid 70s. REVIEW OF SYSTEMS: A 12-point review of systems was done and was all negative unless stated in the history of present illness. PHYSICAL EXAMINATION: VITAL SIGNS: Temperature 98.5, pulse 96, respiratory rate 18, saturating 96% on room air, and blood pressure 139/87. GENERAL: Awake, alert, and oriented x3, in no distress. HEENT: Normocephalic and atraumatic. NECK: Supple. LUNGS: Clear. CARDIOVASCULAR: S1 and S2. No S3 or S4. ABDOMEN: Soft. Positive bowel sounds. EXTREMITIES: No edema. SKIN: Warm and dry. LABORATORY DATA: Laboratory work was reviewed. CBC, CMP, and troponins were reviewed. BNP was 559. DIAGNOSTIC DATA: EKG was reviewed. ASSESSMENT: 1. Unstable angina. 2. [id number]-[id number] myocardial infarction, troponin elevation. PLAN: 1. We will plan on doing a heart catheterization. We spoke at length with the risks and benefits of the procedure. Risks included, but not limited to stroke, MN, , bleeding, need for blood transfusion, limb loss, organ loss. The patient understands and verbalized understanding of this and agrees to proceed. 2. Further recommendations per results of coronary angiogram. Job ID: [id number]
[2019-01-09] MEDS ORDERED: Docusate 100 MG CAP PO SCH (21:00)
[2019-01-09] MEDS ORDERED: Gabapentin 300 MG CAP PO SCH (21:00)
[2019-01-10] MEDS: traMADol HCl 50 MG TAB PO SCH ×2 (00:14→06:15)
[2019-01-10] MEDS: Acetaminophen 325 MG TAB PO SCH ×2 (00:14→06:16)
[2019-01-10] MEDS: Ibuprofen 800 MG TAB PO SCH ×2 (00:14→06:16)
[2019-01-10] MEDS: Sodium Chloride 0.9% 1,000 ML IV SCH ×3 (01:06→18:01)
[2019-01-10 05:06] LABS: #Eosinphils 0.1 thou/uL (0.0-0.7); #Lymphocytes 1.6 thou/uL (1.20-3.40); #Monocytes 0.7 thou/uL (0.11-0.59); #Neutrophils 5.6 thou/uL (1.40-6.50); %Basophils 0.4 % (0.0-1.0); %Eosinophils 1.2 % (0.0-10.0); %Lymphocytes 20.2 % (21.0-51.0); %Monocytes 8.4 % (0.0-10.0); %Neutrophils 69.8 % (42.0-75.0); Hemoglobin 9.1 g/dL (14.0-18.0); Mean Corpuscular HGB CONC 29.7 g/dL (32.0-36.0); Mean Corpuscular Volume 84.2 fL (78.0-98.0); Mean Platelet Volume 7.4 fL (7.4-10.4); Platelet Count 447 thou/uL (130-400); RBC Distribution Width 15.9 % (11.5-14.5); Red Blood Cell (RBC) Count 3.64 mill/uL (4.70-6.10)
[2019-01-10 05:24] LABS: Anion Gap 15 mmol/L (10-20); BUN (Urea Nitrogen) 9 mg/dL (8.4-25.7); Calc. Creatinine Clearance 147 mL/min (70-130); Carbon Dioxide 20 mmol/L (23-31); Chloride 105 mmol/L (98-107); Estimated GFR-MDRD Greater than 90; Glucose 98 mg/dL (80-115); Potassium 4.3 mmol/L (3.5-5.1); Sodium 136 mmol/L (136-145)
[2019-01-10] MEDS ORDERED: Albumin 5% 0 ML ONE (06:41)
[2019-01-10 08:37] LABS: Bilirubin Negative (Negative); Blood, Urine Small (Negative); Clarity CLEAR (Clear); Glucose, Urine (Dipstick) Negative (Negative); Leukocyte Negative (Negative); Nitrite Negative (Negative); Protein, Urine (Dipstick) Negative (Neg-Trace); Urobilinogen 0.2 mg/dL (0.2-1.0); pH, Urine 6.5 (5.0-9.0)
[2019-01-10 08:40] LABS: Bacteria/HPF None Seen HPF (None Seen); Hyaline Casts/LPF 0-3 HYALINE CAST LPF (0-3 Hyaline); Squamous Epithelial None Seen HPF (0-3); WBC/HPF None Seen HPF (0-3)
[2019-01-10] MEDS ORDERED: Amlodipine 10 MG TAB PO SCH (09:00)
[2019-01-10] MEDS ORDERED: Folic Acid 1 MG TAB PO SCH (09:00)
[2019-01-10] MEDS ORDERED: Enoxaparin Sodium 40 MG/0.4 ML SYRINGE SC SCH (09:00)
[2019-01-10] MEDS ORDERED: Midazolam HCl 2 mg/2 ml Vial ONE (09:27)
[2019-01-10] MEDS ORDERED: Ondansetron ODT 4 MG TAB ONE (09:27)
[2019-01-10] MEDS ORDERED: Vecuronium 10 MG VIAL ONE ×3 (09:36→12:31)
[2019-01-10] MEDS ORDERED: Nitroglycerin 50 MG/250 ML BOT 0 ML ONE (09:38)
[2019-01-10] MEDS ORDERED: Phenylephrine HCL 10 MG/ML VIAL ONE (09:38)
[2019-01-10] MEDS ORDERED: Norepinephrine 8 MG/0.9% NS 250 ML ONE (09:38)
[2019-01-10] MEDS ORDERED: Midazolam HCl 5 mg/5 ml Vial ONE (09:38)
[2019-01-10] MEDS ORDERED: Dexmedetomidine 200 MCG/2 ML VIAL ONE (09:58)
[2019-01-10] MEDS ORDERED: Heparin 10,000 UNITS/1 ML VIAL 30,000 UNITS in Sodium Chloride 0.9% 1,000 ML FS SCH (10:15)
[2019-01-10] MEDS ORDERED: Fentanyl 250 MCG/5 ML VIAL ONE (11:11)
[2019-01-10] MEDS ORDERED: Glycopyrrolate 0.2 MG/ML 5 ML SYRINGE ONE (12:31)
[2019-01-10] MEDS ORDERED: Heparin 5,000 UNITS/ML VIAL ONE (12:31)
[2019-01-10] MEDS ORDERED: Papaverine 60 MG/2 ML VIAL ONE ×2 (12:31→13:30)
[2019-01-10] MEDS ORDERED: Heparin 30,000 units/30 ml VIAL ONE (12:31)
[2019-01-10] MEDS ORDERED: Magnesium 5 GM/10 ML VIAL ONE (12:31)
[2019-01-10] MEDS ORDERED: Calcium Chloride 1 GM/10 ML Abboject SYRINGE ONE (12:31)
[2019-01-10] MEDS ORDERED: PHENYLEPHRINE-NS 100 MCG/ML 10 ML SYRINGE ONE ×3 (12:31→15:47)
[2019-01-10] MEDS ORDERED: Ondansetron PF 4 MG/2 ML Vial ONE (12:31)
[2019-01-10] MEDS ORDERED: Lidocaine 1% PF 5 ML VIAL ONE (12:31)
[2019-01-10] MEDS ORDERED: Mannitol 12.5 GM/50 ML ONE (12:31)
[2019-01-10] MEDS ORDERED: Thrombin 5000 UNITS/5 ML VIAL ONE (12:31)
[2019-01-10] MEDS ORDERED: PROPOFOL 200 MG/20 ML VIAL ONE (12:31)
[2019-01-10] MEDS ORDERED: Cardioplegic Soln 1,000 ML BAG ONE (12:31)
[2019-01-10] MEDS ORDERED: Sodium Bicarb 50 MEQ/50 ML VIAL ONE (12:31)
[2019-01-10] MEDS ORDERED: Dexamethasone 4 mg/ml Vial ONE ×2 (12:31→15:27)
[2019-01-10] MEDS ORDERED: Aminocaproic Acid 5 GM/20 ML VIAL ONE (12:31)
[2019-01-10] MEDS ORDERED: ePHEDrine 50 MG/ML VIAL ONE (12:31)
[2019-01-10] MEDS ORDERED: Rocuronium Bromide 10 MG/ML (10ML VIAL) ONE (12:31)
[2019-01-10] MEDS ORDERED: Protamine Sulfate 250 MG/25 ML VIAL ONE (12:31)
[2019-01-10] MEDS ORDERED: Bupivacaine HCl 0.5%/Epinephrine 1:200,000/PF 30 ml Vial ONE (15:27)
[2019-01-10] MEDS ORDERED: Fentanyl 100 MCG/2 ML VIAL ONE (16:37)
--- NOTE | 2019-01-10 16:44 | PRG ---
DATE OF SERVICE: 01/10/2019 SUBJECTIVE: The patient is seen and examined at the bedside. He does not have much complaints to offer. OBJECTIVE: VITAL SIGNS: Blood pressure is 120/80, temperature is 98, pulse is 82, respiratory rate is 14, and O2 saturation is 96% on room air. HEENT: His head is atraumatic and normocephalic. Eyes are PERRLA. Sclerae are nonicteric. Oral mucosa is moist. NECK: Supple. LUNGS: Clear. HEART: S1 and S2 normal. ABDOMEN: Soft, nontender, nontender, and nondistended. EXTREMITIES: No clubbing, cyanosis, or edema. NEUROLOGICAL: He is alert and oriented x4. There is no any motor or sensory deficits. LABORATORY DATA: White count of 8.0, hemoglobin 9.1, hematocrit 30.6, platelet count is 447. IMPRESSION: 1. Coronary artery syndrome, non-ST elevation myocardial infarction, status post cardiac catheterization, which showed severe two-vessel coronary artery disease with mildly decreased left ventricular function. 2. Normocytic anemia. 3. History of chest trauma with multiple rib fractures and status post thoracostomy in September 2018. DISCUSSION: The patient was seen by cardiothoracic surgeon and he is scheduled for bypass surgery today by Dr. Jalloh. Follow up on his status post surgery. Job ID: [id number]
[2019-01-10] MEDS ORDERED: Guaifenesin DM 100-10/5 ML UDCUP PO PRN ×2 (17:13)
[2019-01-10] MEDS ORDERED: Bisacodyl 5 MG TAB PO PRN ×2 (17:13)
[2019-01-10] MEDS ORDERED: Hetastarch 6% 500 ML 500 ML IVPB PRN ×2 (17:13)
[2019-01-10] MEDS ORDERED: Potassium Chloride 20 MEQ/100 ML PREMIX BAG IVPB PRN ×2 (17:13)
[2019-01-10] MEDS ORDERED: hydrALAZINE 20 MG/ML VIAL SLOW IVP PRN ×2 (17:13)
[2019-01-10] MEDS ORDERED: HYDROcodone/Acetaminophen 5/325 mg Tablet PO PRN ×3 (17:13)
[2019-01-10] MEDS ORDERED: Fentanyl 100 MCG/2 ML VIAL SLOW IVP PRN ×3 (17:13)
[2019-01-10] MEDS ORDERED: DOPamine 400 MG/D5W 250 ML 250 ML IVPB PRN (17:13)
[2019-01-10] MEDS ORDERED: Bisacodyl 10 MG SUPP PR PRN ×2 (17:13)
[2019-01-10] MEDS ORDERED: Acetaminophen 325 MG TAB PO PRN ×2 (17:13)
[2019-01-10] MEDS ORDERED: Mag-Al 1200 mg/1200 mg/30 ML UDCUP PO PRN ×2 (17:13)
[2019-01-10] MEDS ORDERED: Morphine 4 MG/ML VIAL SLOW IVP PRN (17:13)
[2019-01-10] MEDS ORDERED: Post-Op Insulin Drip Protocol IVPB ONE ×2 (17:13)
[2019-01-10] MEDS ORDERED: Ondansetron PF 4 MG/2 ML Vial IVP PRN ×2 (17:13)
[2019-01-10] MEDS ORDERED: Promethazine HCl 25 MG/ML VIAL IM PRN ×2 (17:13)
[2019-01-10] MEDS ORDERED: Nitroglycerin 50 MG/250 ML BOT 250 ML IVPB PRN ×2 (17:13)
[2019-01-10] MEDS ORDERED: Norepinephrine 8 MG/0.9% NS 250 ML IVPB PRN (17:13)
[2019-01-10] MEDS ORDERED: niCARdipine HCl 25 MG in Sodium Chloride 0.9% 250 ML 240 ML IVPB PRN (17:13)
[2019-01-10] MEDS ORDERED: Dextrose 50% Abboject 50 ML SYRINGE SLOW IVP PRN (17:30)
[2019-01-10] MEDS ORDERED: Dextrose 5% in Water 1,000 ML IV PRN (17:30)
[2019-01-10] MEDS ORDERED: HUMULIN R 100 UNITS in Sodium Chloride 0.9% 100 ML IVPB SCH (17:30)
[2019-01-10] MEDS: Ketorolac Tromethamine 30 MG/ML VIAL IVP SCH ×2 (17:50→23:42)
[2019-01-10] MEDS: Insulin Regular 300 UNITS/3 ML VIAL SC PRN ×3 (17:58→23:44)
[2019-01-10 18:12] LABS: #Basophils 0.1 thou/uL (0.0-0.2); #Eosinphils 0.1 thou/uL (0.0-0.7); #Lymphocytes 1.6 thou/uL (1.20-3.40); #Neutrophils 15.3 thou/uL (1.40-6.50); %Basophils 0.3 % (0.0-1.0); %Eosinophils 0.4 % (0.0-10.0); %Monocytes 5.7 % (0.0-10.0); %Neutrophils 84.5 % (42.0-75.0); Hemoglobin 8.6 g/dL (14.0-18.0); Mean Corpuscular HGB CONC 29.2 g/dL (32.0-36.0); Mean Corpuscular Hemoglobin 24.6 pg (27.0-31.0); Mean Corpuscular Volume 84.2 fL (78.0-98.0); Mean Platelet Volume 7.3 fL (7.4-10.4); Platelet Count 399 thou/uL (130-400); RBC Distribution Width 15.6 % (11.5-14.5); Red Blood Cell (RBC) Count 3.51 mill/uL (4.70-6.10); White Blood Cell (WBC) Count 18.1 thou/uL (4.8-10.8)
[2019-01-10 18:15] LABS: INR-International Normal Ratio 1.4; PTT 31.1 SEC (22.9-36.1); Prothrombin Time 17.5 SEC (12.0-14.7)
[2019-01-10 18:27] LABS: Anion Gap 11 mmol/L (10-20); BUN (Urea Nitrogen) 8 mg/dL (8.4-25.7); Calc. Creatinine Clearance 157 mL/min (70-130); Calcium 8.5 mg/dL (7.8-10.44); Carbon Dioxide 23 mmol/L (23-31); Chloride 111 mmol/L (98-107); Estimated GFR-MDRD Greater than 90; Glucose 126 mg/dL (80-115); Potassium 4.2 mmol/L (3.5-5.1); Sodium 141 mmol/L (136-145)
--- NOTE | 2019-01-10 18:29 | RAD ---
PORTABLE AP CHEST X-RAY 01/10/19 HISTORY: Post open heart surgery. COMPARISON: 01/08/19. FINDINGS: There has been interval placement of a left subclavian central venous catheter with the tip overlying the expected location of the SVC. There is a tiny left apical pneumothorax present. There has been i nterval postsurgical changes with median sternotomy wires and surgical clips overlying the left bentley r region. Mediastinal drains are noted in place. The aortic contour is obscured superiorly likely rel ated to recent postsurgical changes. Atelectasis is present at the medial left lung base. Chronic changes on the right are again seen with multiple right sided rib fractures, right clavicle f racture and right scapular fracture which are remote and displaced. Persistent volume loss with pleur al and parenchymal scarring right hemithorax is present. IMPRESSION: 1. Interval postsurgical changes related to CABG. Lines and tubes are in place as described abov e. 2. Tiny left apical pneumothorax occupying less than 10% of the volume left hemithorax. These findings were discussed with Rosalva Loyd, nurse in the CCU, on 01/10/19 at 1758 hours. POS: [facility]
--- NOTE | 2019-01-10 19:51 | OP ---
DATE OF PROCEDURE: 01/10/2019 PROCEDURES PERFORMED: Coronary artery bypass grafting x3 with left internal mammary artery to the distal LAD, reverse greater saphenous vein graft from aorta to the posterolateral branch of the RCA and left radial artery from the aorta (arriaga of right coronary system vein graft proximal anastomosis) to the mid PDA. PREOPERATIVE DIAGNOSIS: Coronary artery disease with mildly decreased LV function, status post [id number] myocardial infarction. POSTOPERATIVE DIAGNOSIS: Coronary artery disease with mildly decreased LV function, status post [id number] myocardial infarction. TICKET PRINTER: Tu. ANESTHESIA: General endotracheal anesthesia. INDICATIONS: The patient is a 63-year-old man, who in retrospect had been having some mild exertional chest pain for some time, who began having far more frequent chest pressure radiating to his arms including some episodes at rest. He had mildly decreased LV function on echocardiography, but empiric nitrates and beta blockers initially brought his symptoms under good control. They recurred, however, and he presented to the emergency room with a severe episode and although, it had resolved by the time he reached. In the ER, his initial troponins were positive. Cardiac catheterization demonstrated severe 2-vessel coronary artery disease with serial lesions in the proximal portion of his mid LAD, very high-grade lesion at the origin of his PDA and more modest lesion at the crux compromising the posterolateral branch of his right. He is now taken to the operating room for surgical revascularization. FINDINGS: Pump time 71 minute. Cross-clamp time 34 minutes. Good quality REGINA, radial artery, and saphenous vein. LAD, PDA, and posterolateral branches were all about 1.5 to 2 mm. The LAD was good quality. The posterolateral branch was somewhat thick walled, but soft. The PDA was extensively diseased for the first several centimeter, but was good quality, grafted in its mid portion. The pericardium was closed. NARRATIVE REPORT: After informed consent was obtained, the patient was taken to the operating room, placed in supine position on the operating table. After the induction of general anesthesia, saphenous vein in his left thigh was ultrasonographically mapped and the patient's left upper chest was prepped and draped in sterile fashion. A triple lumen central line kit was used to place a left subclavian central line. By the Seldinger technique, all 3 ports were easily aspirated and flushed. The line was secured. The hand was examined with a pulse oximeter on one of his fingertips. The radial artery was compressed, and the pulse oximeter waveform remained good with ulnar compression that disappeared and with release of the ulnar but compression of the radial, it was re-established. This corresponded with similar Lobito's testing done in the holding area. The patient's left upper extremity, torso, groins, and lower extremities were then prepped and draped in a sterile fashion. A longitudinal incision was made over the palpable left radial pulse at the wrist. It was isolated and occluded with forceps with no change in the pulse ox waveform. The radial artery was then exposed and isolated in a skeletonized fashion from wrist to the bifurcation of the brachial artery using a skin bridge between 2 incisions. Side branches were controlled with hemoclips. The radial artery was doubly ligated and divided proximally. There was good back bleeding from the radial artery, which was then doubly ligated and divided at the wrist. The distal aspect of the radial artery was intubated with small-bore heparin needle, and papaverine solution was used to distend the radial artery to relieve spasm and to verify adequacy of control of side branches. The forearm wound was inspected for hemostasis and closed in layers of subcutaneous and subcuticular Vicryl. Greater saphenous vein was then harvested from knee to proximal thigh from the left lower extremity using a skin bridge technique and prepared for use as a graft. Those harvest sites were also closed in layers of subcutaneous and subcuticular Vicryl. A median sternotomy was performed. The left internal mammary artery was mobilized as a skeletonized in-situ graft from the level of the xiphoid to the level of subclavian vein through an extrapleural exposure. One small rent in the pericardium distally and anteriorly was repaired with a fine Prolene. The patient was heparinized. Mammary was ligated and divided distally. There was good flow through the mammary, which was then instilled intraluminally with papaverine solution. Mammary bed was inspected for hemostasis. The REGINA retractor was placed with a Robledo retractor. The hilar reflections of the pleura on the left side were mobilized. The pericardium was opened and marsupialized. The aorta was palpated and was soft. Double concentric pursestring of 2-0 Ethibond was placed in the ascending aorta within the pericardial reflection, and a single pursestring was placed in the right atrial appendage. Aortic and venous cannulae were inserted and secured by their pursestrings. Cardiopulmonary bypass was instituted, and the patient was systemically cooled. The plane between the aorta and the pulmonary artery was developed. An aortic cross-clamp was applied, and cardioplegia was administered through an aortic root needle. When arrest had been achieved, attention was turned to the distal right coronary system. The right coronary was exposed at the crux, and then the dissection carried down onto the proximal portion of the posterolateral branch. It was opened with a Hill blade and Ayad scissors, and reverse greater saphenous vein was anastomosed there end-to-side with running Prolene suture. The anastomosis was tested by flushing cold cardioplegia down the graft. The proximal PDA was explored, but it was very diseased vessel and even though angiographically, the stenosis was quite localized at its origin. The vessel was very poor quality all the way out to where it though beneath the great vein. The PDA was exposed and its midportion on the other side of the great vein was much better quality vessel and still of adequate size. It was opened and the radial artery was anastomosed there with running 7-0 Prolene. The mammary was then opened distally. The left REGINA was introduced in the pericardium through a slit made in it anterior of the left phrenic nerve. Mammary was anastomosed to the LAD with running 7-0 Prolene and then tacked to the epicardium. The aortic cross-clamp was replaced with a partial occluding clamp. A generous aortotomy was made in the ascending aorta with a scalpel and punch, incorporating the root needle site. The vein graft to the posterolateral branch of the right coronary was brought along the right side of the heart, trimmed to length and spatulated. It was anastomosed to that aortotomy end-to-side with running Prolene suture. Longitudinal venotomy was made in the arriaga of that proximal anastomosis. The radial graft was distended with saline oriented and trimmed to length. It was spatulated and anastomosed to the arriaga of the posterolateral graft with running 7-0 Prolene. It was allowed to back bleed and the suture line was secured. The partial occluding clamp was removed, and the vein graft was de-aired. The bulldogs were removed from it. The anastomoses were inspected for hemostasis. A posterior pericardial drain was brought out through a separate incision and secured with suture. Right atrial and right ventricular temporary epicardial pacing wires were placed. The patient was then easily from cardiopulmonary bypass. The aortic and venous cannulae were removed, and the pursestring secured. Protamine was administered when hemostasis was adequate. An anterior mediastinal drain was placed, and the pericardium was easily closed over with running Vicryl. The sternum was reapproximated with #7 stainless steel wires after having applied vancomycin paste and platelet-rich GPS to the cut surfaces of the sternum. The soft tissues of the sternotomy were irrigated and then treated with platelet-poor GPS. The fascia was closed over the wires with heavy Vicryl. The subcutaneous tissue was reapproximated with 2-0 Vicryl, and skin was closed with 3-0 Vicryl running subcuticular suture. The wounds were dressed, and the patient was extubated in the operating room and taken to the intensive care unit in good condition. Job ID: [id number]
[2019-01-10] MEDS: HYDROcodone/Acetaminophen 5/325 mg Tablet PO PRN (20:15)
[2019-01-10] MEDS: Famotidine/PF 20 mg/2ml Vial SLOW IVP SCH (20:16)
[2019-01-10] MEDS: Fentanyl 100 MCG/2 ML VIAL SLOW IVP PRN (20:51)
[2019-01-10] MEDS ORDERED: Famotidine/PF 20 mg/2ml Vial SLOW IVP SCH (21:00)
[2019-01-11] MEDS: HYDROcodone/Acetaminophen 5/325 mg Tablet PO PRN ×3 (00:04→15:51)
[2019-01-11 00:18] LABS: Hemoglobin 8.8 g/dL (14.0-18.0)
[2019-01-11 00:20] LABS: Potassium 4.9 mmol/L (3.5-5.1)
[2019-01-11] MEDS: Fentanyl 100 MCG/2 ML VIAL SLOW IVP PRN (01:07)
[2019-01-11 04:19] LABS: #Lymphocytes 0.5 thou/uL (1.20-3.40); #Monocytes 0.6 thou/uL (0.11-0.59); #Neutrophils 11.8 thou/uL (1.40-6.50); %Lymphocytes 3.7 % (21.0-51.0); %Monocytes 4.7 % (0.0-10.0); %Neutrophils 91.7 % (42.0-75.0); Hemoglobin 8.2 g/dL (14.0-18.0); Mean Corpuscular HGB CONC 29.8 g/dL (32.0-36.0); Mean Corpuscular Hemoglobin 25.3 pg (27.0-31.0); Mean Corpuscular Volume 84.8 fL (78.0-98.0); Mean Platelet Volume 7.6 fL (7.4-10.4); Platelet Count 387 thou/uL (130-400); RBC Distribution Width 15.6 % (11.5-14.5); Red Blood Cell (RBC) Count 3.25 mill/uL (4.70-6.10); White Blood Cell (WBC) Count 12.8 thou/uL (4.8-10.8)
[2019-01-11 04:28] LABS: Anion Gap 14 mmol/L (10-20); BUN (Urea Nitrogen) 11 mg/dL (8.4-25.7); Calc. Creatinine Clearance 142 mL/min (70-130); Calcium 8.8 mg/dL (7.8-10.44); Carbon Dioxide 22 mmol/L (23-31); Chloride 107 mmol/L (98-107); Estimated GFR-MDRD Greater than 90; Glucose 120 mg/dL (80-115); Potassium 5.2 mmol/L (3.5-5.1); Sodium 138 mmol/L (136-145)
[2019-01-11] MEDS: Ketorolac Tromethamine 30 MG/ML VIAL IVP SCH ×2 (05:11→12:28)
[2019-01-11] MEDS: Sodium Chloride 0.9% 1,000 ML IV SCH (07:33)
[2019-01-11] MEDS: Famotidine/PF 20 mg/2ml Vial SLOW IVP SCH (08:54)
--- NOTE | 2019-01-11 08:59 | RAD ---
PORTABLE UPRIGHT FRONTAL RADIOGRAPH CHEST: 01/11/2019 HISTORY: Status post open heart surgery. COMPARISON: 01/10/2019 FINDINGS: There is a stable left subclavian vascular catheter, distal tip overlying the region of the SVC origi n, stable. There is a small pneumothorax in the left lung apex, which is similar in size when compar ed to the 01/10/2019 exam. There is mild increased density at the medial left base, which may repres ent infiltrate or volume loss. There are numerous displaced fractures of right-sided ribs and of the right clavicle. Midline sternotomy wires and mediastinal clips are noted. IMPRESSION: Stable appearance of the chest, as detailed above. Findings include a small, stable, left apical pneumothorax. POS: [facility]
[2019-01-11] MEDS ORDERED: Aspirin 325 MG TAB PO SCH (09:00)
[2019-01-11] MEDS ORDERED: Aspirin Chewable 81 MG TAB PO SCH (09:00)
[2019-01-11] MEDS ORDERED: Docusate 100 MG CAP PO SCH (09:00)
[2019-01-11] MEDS ORDERED: Bisacodyl 5 MG TAB PO PRN (09:10)
[2019-01-11] MEDS ORDERED: diphenhydrAMINE 25 MG CAP PO PRN (09:10)
[2019-01-11] MEDS ORDERED: Bisacodyl 10 MG SUPP PR PRN (09:10)
[2019-01-11] MEDS ORDERED: Nitroglycerin 0.4 MG TAB (25 Tab Bottle) SL PRN (09:10)
[2019-01-11] MEDS ORDERED: Guaifenesin DM 100-10/5 ML UDCUP PO PRN (09:10)
[2019-01-11] MEDS ORDERED: Mineral Oil ENEMA PR PRN (09:10)
[2019-01-11] MEDS ORDERED: Artificial Tears 18 DROP/0.9 ML EA EYE PRN (09:30)
[2019-01-11] MEDS ORDERED: Mag-Al 1200 mg/1200 mg/30 ML UDCUP PO PRN (09:30)
--- NOTE | 2019-01-11 12:36 | PRG ---
DATE OF SERVICE: 01/11/2019 SUBJECTIVE: The patient is seen and examined at bedside. He is sitting in the chair this morning. He had bypass done yesterday. He has some soreness in his chest, but otherwise he is doing well. OBJECTIVE: VITAL SIGNS: Blood pressure is 115/80, pulse is 107, respiratory rate is 28, and O2 saturation is 100. HEENT: His head is atraumatic and normocephalic. Eyes are PERRLA. Sclerae are nonicteric. Oral mucosa is moist. NECK: Supple. LUNGS: Breath sounds diminished at both bases. HEART: S1 and S2 normal. No S3. No S4. CHEST: The incision in his front chest looks good. He has chest tubes. ABDOMEN: Soft and nontender. Bowel sounds are present. EXTREMITIES: No clubbing, cyanosis, or edema. NEUROLOGICAL: He follows my commands. There is no any motor or sensory deficit present. Cranial nerves are intact. LABORATORY DATA: Labs showed white count of 12.8, hemoglobin 8.2, hematocrit 27.6, and platelet count is 387. Sodium of 138, potassium 5.2, chloride 107, CO2 of 22, BUN 11, creatinine 0.64, glucose 120, and calcium 8.8. Microbiology, urine culture, no growth in 24 hours. IMPRESSION: 1. Acute coronary syndrome, [id number] myocardial infarction, status post cardiac catheterization, which showed severe two-vessel coronary artery disease and status post coronary artery bypass graft done in 12/2013. 2. Normocytic anemia. 3. History of chest trauma with multiple rib fractures and status post thoracostomy in September 2018. DISCUSSION: The patient is in postoperative day 1. Thoracic surgeon is on the case, obviously Dr. Jalloh and we are going to restart his home medications and will start rehabilitation process. Job ID: [id number]
[2019-01-11] MEDS: Gabapentin 300 MG CAP PO SCH ×2 (15:51→20:55)
--- NOTE | 2019-01-11 16:16 | EKG ---
Test Reason : Blood Pressure : / mmHG Vent. Rate : 105 BPM Atrial Rate : 105 BPM P-R Int : 182 ms QRS Dur : 096 ms QT Int : 374 ms P-R-T Axes : 063 021 071 degrees QTc Int : 494 ms Sinus tachycardia Anteroseptal infarct (cited on or before 08-JAN-2019) Abnormal ECG When compared with ECG of 08-JAN-2019 21:08, (Unconfirmed) Incomplete right bundle branch block is no longer Present Confirmed by DR. Oly YUN ([id number]) on 01/11/2019 4:15:57 PM Referred By: BEAN Confirmed By:DR. Oly YUN
--- NOTE | 2019-01-11 16:39 | PDOC.CTH ---
Cardiology Progress Note - Subjective He had his surgery yesterday and did well. He is working with PT now. - Objective Vital Signs Temp Pulse Pulse BP BP Pulse Ox Pulse Ox 01/11/19 13:48 111 H 106 H 125/80 123/91 H 100 01/11/19 12:00 98.5 F 01/11/19 09:56 106 H 115 H 141/88 H 115/80 100 01/11/19 08:00 98 01/11/19 07:00 98.6 F Pulse Ox 01/11/19 13:48 100 01/11/19 12:00 01/11/19 09:56 100 01/11/19 08:00 01/11/19 07:00 Admit Weight 3.072 oz Weight 182 lb 5.156 oz 01/10/19 01/11/19 01/12/19 06:59 06:59 06:59 Intake Total 2041 1723.8 611 Output Total 1330 275 Balance 2041 393.8 336 - Physical Examination General/Neuro: alert & oriented x3, NAD Neck: no JVD present Lungs: unlabored respirations Heart: RRR Abdomen: NT/ND Extremities: + edema B (trace) - Telemetry Telemetry Rhythm: NSR - Labs Result Diagrams: 01/11/19 03:42 01/11/19 03:42 Troponin/CKMB CK-MB (CK-2) 1.5 ng/mL (0-6.6) 01/08/19 22:23 Troponin I 0.056 ng/mL (< 0.028) H 01/09/19 02:46 - Assessment/Plan 1. Multivessel CAD. 2. S/P CABG x 3, Garcia to LAD, SVG to RPL, Free radial to RPL. 3. Ischemic CM, EF at 40-45% PLAN: - Continue post op care. - Aspirin and statin for life. - Increase PT as tolerated. - Lasix PO daily for now.
[2019-01-11] MEDS: Ferrous Sulfate 325 MG TAB PO SCH (17:07)
[2019-01-11] MEDS: Cyclobenzaprine 10 MG TAB PO PRN (17:08)
[2019-01-11] MEDS: Docusate 100 MG CAP PO SCH (20:54)
[2019-01-11] MEDS: Tamsulosin HCl 0.4 MG CAP PO SCH (20:54)
[2019-01-11] MEDS: Metoprolol Tartrate 25 MG TAB PO SCH (20:55)
[2019-01-11] MEDS ORDERED: Zolpidem Tartrate 5 MG TAB PO PRN (21:00)
[2019-01-11] MEDS ORDERED: Atorvastatin Calcium 20 MG TAB PO SCH (21:00)
[2019-01-12] MEDS: Cyclobenzaprine 10 MG TAB PO PRN ×2 (04:51→12:03)
[2019-01-12 05:13] LABS: #Lymphocytes 1.4 thou/uL (1.20-3.40); #Neutrophils 8.1 thou/uL (1.40-6.50); %Basophils 0.1 % (0.0-1.0); %Eosinophils 0.2 % (0.0-10.0); %Lymphocytes 13.6 % (21.0-51.0); %Monocytes 9.2 % (0.0-10.0); Mean Corpuscular HGB CONC 30.7 g/dL (32.0-36.0); Mean Corpuscular Hemoglobin 25.2 pg (27.0-31.0); Mean Platelet Volume 8.2 fL (7.4-10.4); Platelet Count 371 thou/uL (130-400); RBC Distribution Width 16.1 % (11.5-14.5); Red Blood Cell (RBC) Count 3.19 mill/uL (4.70-6.10); White Blood Cell (WBC) Count 10.5 thou/uL (4.8-10.8)
[2019-01-12 05:29] LABS: Anion Gap 14 mmol/L (10-20); BUN (Urea Nitrogen) 16 mg/dL (8.4-25.7); Calc. Creatinine Clearance 126 mL/min (70-130); Calcium 8.7 mg/dL (7.8-10.44); Carbon Dioxide 23 mmol/L (23-31); Chloride 101 mmol/L (98-107); Estimated GFR-MDRD Greater than 90; Glucose 109 mg/dL (80-115); Potassium 4.8 mmol/L (3.5-5.1); Sodium 133 mmol/L (136-145)
[2019-01-12] MEDS: HYDROcodone/Acetaminophen 5/325 mg Tablet PO PRN ×4 (06:06→20:59)
[2019-01-12] MEDS: Furosemide 40 MG TAB PO SCH (07:26)
[2019-01-12] MEDS: Ferrous Sulfate 325 MG TAB PO SCH ×2 (07:26→17:35)
[2019-01-12] MEDS ORDERED: Aspirin 325 mg Enteric Coated Tablet PO SCH (09:00)
[2019-01-12] MEDS: Folic Acid 1 MG TAB PO SCH (09:19)
[2019-01-12] MEDS: Aspirin 325 mg Enteric Coated Tablet PO SCH (09:19)
[2019-01-12] MEDS: Tamsulosin HCl 0.4 MG CAP PO SCH ×2 (09:20→20:58)
[2019-01-12] MEDS: Gabapentin 300 MG CAP PO SCH ×3 (09:20→20:58)
[2019-01-12] MEDS: Docusate 100 MG CAP PO SCH ×2 (09:20→20:58)
[2019-01-12] MEDS: Metoprolol Tartrate 25 MG TAB PO SCH ×2 (09:20→20:58)
[2019-01-12] MEDS ORDERED: Fentanyl 100 MCG/2 ML VIAL SLOW IVP PRN (10:28)
[2019-01-12] MEDS: Ketorolac Tromethamine 30 MG/ML VIAL IVP SCH ×3 (11:10→23:56)
--- NOTE | 2019-01-12 12:11 | RAD ---
CHEST 1 VIEW: Date: 01/12/19 HISTORY: Right chest pain. Rib fractures. FINDINGS: The previously noted small left apical pneumothorax is poorly seen on this study. Numerous displaced right rib fractures and displaced right clavicle fracture without significant pneumothorax. Left subc lavian catheter in place. Patchy parenchymal changes in infrahilar regions, possibly subsegmental ate lectasis. IMPRESSION: Small residual left apical pneumothorax. Patchy parenchymal changes in the infrahilar regions bilater ally, stable. Extensive healing right rib fractures and right clavicle fracture with pleural and pare nchymal changes which appear stable. POS: [facility]
--- NOTE | 2019-01-12 13:54 | PRG ---
DATE OF SERVICE: 01/12/2019 SUBJECTIVE: The patient is seen and examined at the bedside. He is sitting in the chair. His family is present during my visit. He does not have much complaints to offer. He just ate his lunch. OBJECTIVE: VITAL SIGNS: Blood pressure is 125/80, pulse is 94, temperature is 97.9, O2 saturation 95% on room air. HEENT: His head is atraumatic and normocephalic. Eyes are PERRLA. Sclerae are nonicteric. Oral mucosa is slightly dry. NECK: Supple. LUNGS: Breath sounds diminished at both bases with bilateral crackles at both bases. HEART: S1, S2 normal. No S3. No S4. The incision from surgery looks good. He is healing properly. ABDOMEN: Soft, nontender, nondistended. EXTREMITIES: No clubbing, cyanosis, or edema. NEUROLOGICAL EXAMINATION: He is alert and oriented x4. There is no any sensory or motor deficits present. Cranial nerves are intact. LABORATORY DATA: White count of 10.5, hemoglobin 8.0, hematocrit 26.2, platelet count 371,000. Sodium of 133, and the rest of chemistry within normal limits. Chest x-ray followup showed small residual left apical pneumothorax with patchy parenchymal changes in the infrahilar regions bilaterally, which is stable. parenchymal changes in the hilar region and some possibly subsegmental atelectasis multiple rib fractures on the right side and a clavicle fracture. IMPRESSION: 1. Acute coronary syndrome, non-ST elevation myocardial infarction, status post cardiac catheterization, which showed severe two-vessel coronary artery disease and status post coronary artery bypass graft done on 01/10/2019. 2. Normocytic anemia. 3. History of chest trauma with multiple rib fractures and status post thoracostomy, neck in September 2018. DISCUSSION: The patient is doing well. He will continue his postoperative recovery per Cardiothoracic surgeon's recommendation. Will follow up and will continue care with PT and OT, and Pain Management as needed. Job ID: [id number]
[2019-01-12] MEDS ORDERED: Melatonin 3 MG TAB PO PRN (18:18)
[2019-01-12] MEDS ORDERED: Atorvastatin Calcium 40 MG TAB PO SCH (21:00)
[2019-01-13 05:33] LABS: #Eosinphils 0.2 thou/uL (0.0-0.7); #Lymphocytes 1.4 thou/uL (1.20-3.40); #Monocytes 1.3 thou/uL (0.11-0.59); #Neutrophils 6.1 thou/uL (1.40-6.50); %Basophils 0.5 % (0.0-1.0); %Eosinophils 2.1 % (0.0-10.0); %Lymphocytes 15.5 % (21.0-51.0); %Monocytes 14.8 % (0.0-10.0); %Neutrophils 67.2 % (42.0-75.0); Hemoglobin 7.9 g/dL (14.0-18.0); Mean Corpuscular HGB CONC 29.6 g/dL (32.0-36.0); Mean Corpuscular Hemoglobin 25.9 pg (27.0-31.0); Mean Corpuscular Volume 87.6 fL (78.0-98.0); Mean Platelet Volume 8.2 fL (7.4-10.4); Platelet Count 343 thou/uL (130-400); RBC Distribution Width 16.6 % (11.5-14.5); Red Blood Cell (RBC) Count 3.03 mill/uL (4.70-6.10); White Blood Cell (WBC) Count 9.1 thou/uL (4.8-10.8)
[2019-01-13] MEDS: Ketorolac Tromethamine 30 MG/ML VIAL IVP SCH ×2 (06:29→11:40)
[2019-01-13] MEDS: Ferrous Sulfate 325 MG TAB PO SCH (07:56)
[2019-01-13] MEDS: Furosemide 40 MG TAB PO SCH (07:56)
[2019-01-13] MEDS ORDERED: Lisinopril 5 MG TAB PO SCH (09:00)
[2019-01-13] MEDS: Aspirin 325 mg Enteric Coated Tablet PO SCH (09:11)
[2019-01-13] MEDS: Tamsulosin HCl 0.4 MG CAP PO SCH (09:12)
[2019-01-13] MEDS: Docusate 100 MG CAP PO SCH (09:12)
[2019-01-13] MEDS: Folic Acid 1 MG TAB PO SCH (09:12)
[2019-01-13] MEDS: Metoprolol Tartrate 25 MG TAB PO SCH (09:12)
[2019-01-13] MEDS: Gabapentin 300 MG CAP PO SCH ×2 (09:12→14:20)
[2019-01-13 11:40] VITALS: BP 110/74; TEMP 98.3
[2019-01-13] MEDS: HYDROcodone/Acetaminophen 5/325 mg Tablet PO PRN (14:19)
--- NOTE | 2019-01-14 13:29 | DIS ---
DATE OF ADMISSION: 01/09/2019 DATE OF DISCHARGE: 01/13/2019 PRINCIPAL DIAGNOSIS: Coronary artery disease. PROCEDURES PERFORMED: Cardiac catheterization on 01/09/2019. Coronary artery bypass grafting x3 with left internal mammary artery to the LAD. Left radial artery from the aorta to the PDA and reverse greater saphenous vein graft from the aorta to the posterolateral branch of the RCA, 01/10/2019. HISTORY OF PRESENT ILLNESS AND HOSPITAL COURSE: The patient is a 63-year-old man with suspected coronary disease based on symptomatology and noninvasive imaging. Empiric medical management had brought his symptoms under good control, but they recurred and he presented to the emergency room prior to elective cardiac catheterization being able to be arranged. He underwent cardiac catheterization that demonstrated severe two vessel coronary disease and he underwent surgical revascularization. He was extubated in the operating room and transferred out of the Intensive Care Unit on postoperative day #1. He had an uneventful postoperative recovery and was discharged home on postoperative day #3. Job ID: [id number]
== END 2019-01-13 14:45 | disposition home or self-care (01) | DRG 234 ==
LOC: ERS 21:59 → ERHOLD 01-09 00:12 → OBSVTOIN 01-09 00:12 → 2SW 01-09 11:24 → CCU 01-10 12:13 → 2NO 01-11 16:52
PROVIDERS: ADMIT Internal Medicine; ATTEND Internal Medicine
PROC: 4A023N7 Measurement of Cardiac Sampling and Pressure, Left Heart, Percutaneous Approach (ICD-10-PCS; 2019-01-09)
PROC: B2111ZZ Fluoroscopy of Multiple Coronary Arteries using Low Osmolar Contrast (ICD-10-PCS; 2019-01-09)
PROC: B2151ZZ Fluoroscopy of Left Heart using Low Osmolar Contrast (ICD-10-PCS; 2019-01-09)
PROC: 02100Z9 Bypass Coronary Artery, One Artery from Left Internal Mammary, Open Approach (ICD-10-PCS; principal; 2019-01-10)
PROC: 021009W Bypass Coronary Artery, One Artery from Aorta with Autologous Venous Tissue, Open Approach (ICD-10-PCS; 2019-01-10)
PROC: 02100AW Bypass Coronary Artery, One Artery from Aorta with Autologous Arterial Tissue, Open Approach (ICD-10-PCS; 2019-01-10)
PROC: 03BC0ZZ Excision of Left Radial Artery, Open Approach (ICD-10-PCS; 2019-01-10)
PROC: 06BQ0ZZ Excision of Left Saphenous Vein, Open Approach (ICD-10-PCS; 2019-01-10)
PROC: 5A1221Z Performance of Cardiac Output, Continuous (ICD-10-PCS; 2019-01-10)
DX: I21.4 Non-ST elevation (NSTEMI) myocardial infarction (principal); I25.110 Atherosclerotic heart disease of native coronary artery with unstable angina pectoris; D64.9 Anemia, unspecified; I25.5 Ischemic cardiomyopathy; Z79.82 Long term (current) use of aspirin; Z79.899 Other long term (current) drug therapy
CPT/HCPCS: 36415; 36416; 36430; 71045; 71046; 80048; 80053; 81003; 81015; 82553; 83880; 84484; 85025; 85610; 85730; 86850; 86900; 86901; 87086; 93005; 93010; 93458; 93798; 94640; 94760; 99152; C1769; J0670; J1100; J1642; J1644; J1815; J1885; J2001; J2150; J2250; J2370; J2405; J2440; J2704; J2720; J3010; J3370; J3475; J3490; J7050; J7620; P9016; P9045; Q0162; Q0163; Q9967; S0017; S0028

== ENCOUNTER 2020-09-03 06:52 | Outpatient (CLI) | payer MEDICARE ==
--- NOTE | 2020-09-03 15:30 | RAD ---
Chest 2 views HISTORY: Preop. COMPARISON: 01/12/2019. FINDINGS: Cardiac silhouette and pulmonary vasculature are unremarkable. Mediastinum is midline with postoperative changes apparent. Extensive old injury of the right chest including the clavicle, scapula, and ribs, with associated vo lume loss of the right lung, similar in appearance to the prior study. No lobar consolidation, pleural fluid, or pneumothorax. IMPRESSION : Chronic-type findings are stable. No active cardiopulmonary abnormalities are demonstrated.
[2020-09-03 15:38] LABS: Hemoglobin 11.4 g/dL (14.0-18.0); Mean Corpuscular HGB CONC 29.9 G/DL (32.0-36.0); Mean Corpuscular Hemoglobin 26.6 PG (27.0-33.0); Mean Corpuscular Volume 88.8 fl (80.0-100.0); Mean Platelet Volume 9.5 fl (7.4-10.4); Platelet Count 312 10x3/uL (130-400); RBC Distribution Width 13.7 % (11.5-14.5); Red Blood Cell (RBC) Count 4.29 10x6/uL (4.40-5.80); White Blood Cell (WBC) Count 9.2 10x3/uL (4.5-11.0)
[2020-09-03 16:12] LABS: Anion Gap 16 mmol/L (10-20); BUN (Urea Nitrogen) 11 mg/dL (8.4-25.7); Calc. Creatinine Clearance 0 mL/min (70-130); Calcium 8.2 mg/dL (7.8-10.44); Carbon Dioxide 24 mmol/L (23-31); Chloride 104 mmol/L (98-107); Estimated GFR-MDRD Greater than 90; Glucose 110 mg/dL (80-115); Potassium 4.6 mmol/L (3.5-5.1); Sodium 139 mmol/L (136-145)
[2020-09-04 15:03] LABS: SARS-CoV-2 MS2 Positive; SARS-CoV-2 N Gene Negative; SARS-CoV-2 S Gene Negative; SARS-CoV-2 by NAA Not Detected (NotDetected); SARS-CoV-2 orf1ab Negative
--- NOTE | 2020-09-06 20:54 | EKG ---
Test Reason : Blood Pressure : / mmHG Vent. Rate : 075 BPM Atrial Rate : 075 BPM P-R Int : 184 ms QRS Dur : 094 ms QT Int : 358 ms P-R-T Axes : 067 065 092 degrees QTc Int : 399 ms Normal sinus rhythm Septal infarct , age undetermined Abnormal ECG No previous ECGs available Confirmed by Deann GRANADOS ([id number]) on 09/06/2020 8:54:05 PM Referred By: BEAN Confirmed By:Deann GRANADOS
== END 2020-09-03 06:53 | disposition home or self-care (01) ==
LOC: LABBT 06:52
PROVIDERS: ATTEND Thoracic Surgery (Cardiothoracic Vascular Surgery)
DX: Z01.818 Encounter for other preprocedural examination (principal); J94.2 Hemothorax; Z20.828 Contact with and (suspected) exposure to other viral communicable diseases
CPT/HCPCS: 71046; 80048; 85027; 93005; U0003; 87635; 93010

== ENCOUNTER 2020-09-08 06:01 | Day surgery (SDC) | payer MEDICARE ==
--- NOTE | 2020-09-07 09:17 | HP ---
DATE OF ANTICIPATED ENCOUNTER: 09/08/2020. CHIEF COMPLAINT: Purulent drainage from right chest wall sinus tract. HISTORY OF PRESENT ILLNESS: The patient is a 65-year-old man, who now almost 2 years ago, fell off a second story roof, sustaining multiple rib fractures on the right side at the time of thoracoscopy for drainage of retained effusion. He was found to have a ruptured right hemidiaphragm which was repaired by extending one of the port sites large enough to allow for direct visualization and suture repair. He developed seroma in that wound that required opening it when dehisced and began draining that healed, but he has had recurrent problems with drainage including an area in close proximity to that incision where some bone or dystrophic calcification eroded through the skin. He has had limited I and D's in the office, but he is persisting and having purulent drainage from sinus tract. PAST MEDICAL HISTORY: Also significant for coronary artery disease and he underwent coronary artery bypass grafting in December of 2018. MEDICATIONS: 1. Baby aspirin a day. 2. Flomax. 3. Folate. 4. Lipitor 40 mg a day. 5. Neurontin 300 mg three times a day. 6. Cyclobenzaprine 10 mg t.i.d. p.r.n. FAMILY HISTORY: Significant only for his father who had heart disease but lived age 79 and his mother who has hypertension and is 95 years old. REVIEW OF SYSTEMS: Negative for any fever or chills. Negative for any shortness of breath. Negative for any chest pain. PHYSICAL EXAMINATION: VITAL SIGNS: 6 feet 4, weighs 205 pounds. Temperature is 98.3, heart rate 72, blood pressure 136/78. LUNGS: He has clear breath sounds. HEART: Regular rate and rhythm. He has a sinus tract associated with his right chest wall incision that tracks superiorly about 6 or 8 cm. LABORATORY EXAM: Shows a white count of 9.2, hemoglobin 11.4, platelet count of 312,000. Electrolytes are normal. BUN 11, creatinine 0.74, glucose 110. COVID was negative. His chest x-ray shows obvious right-sided deformity from multiple rib fractures and clavicular fracture as well as scapular fracture. IMPRESSION AND RECOMMENDATION: Persistent sinus tract that has not been amenable to healing by secondary intention following the limited I and D's that has been done in office. We will plan on more aggressive I and D and debridement of any necrotic bone that may be encountered within the wound almost surely requiring general anesthesia. Job ID: [id number]
[2020-09-07 13:01] VITALS: BMI 24.3
[2020-09-08] MEDS ORDERED: Fentanyl 100 MCG/2 ML VIAL ONE ×2 (06:51→08:34)
[2020-09-08] MEDS ORDERED: Glycopyrrolate 0.2 MG/ML 5 ML SYRINGE ONE (10:31)
[2020-09-08] MEDS ORDERED: Lidocaine 1% PF 5 ML VIAL ONE (10:31)
[2020-09-08] MEDS ORDERED: Rocuronium Bromide 10 MG/ML (10ML VIAL) ONE (10:31)
[2020-09-08] MEDS ORDERED: Ondansetron PF 4 MG/2 ML Vial ONE (10:31)
[2020-09-08] MEDS ORDERED: PROPOFOL 200 MG/20 ML VIAL ONE (10:31)
--- NOTE | 2020-09-08 10:51 | OP ---
DATE OF PROCEDURE: 09/08/2020 PROCEDURE PERFORMED: Incision and drainage of right lateral chest wall wound. PREOPERATIVE DIAGNOSIS: Chronically draining right thoracotomy incision. POSTOPERATIVE DIAGNOSIS: Chronically draining right thoracotomy incision. ANESTHESIA: General endotracheal anesthesia. INDICATIONS: The patient is a 65-year-old man, who about 2 years ago, fell from the roof of a two-chuy house, sustaining extensive rib, clavicular, and scapular fractures on the right side. At thoracoscopy to drain the presumably retained hemothorax, he was found to have a small area of rupture of the right hemidiaphragm, one of the port sites was extended to allow for suture repair of that. Since then, he has intermittently had problems with draining from his incision. Initially, it appeared to simply be a seroma related to the skin incision, but he has episodically had multiple recurrences of this. He is now taken to the operating room for I and D. FINDINGS: When probed, the wound tracks several centimeters, and upon opening the tract, dissected multiple areas. A small sliver of what appeared to represent bone was evacuated from one wound and Ethibond suture was recovered from the intercostal space anteriorly. At the skin level, the elliptical incision measured 15 cm long anterior to posterior, 5.5 cm wide craniocaudad, and about 3.5 cm deep down to the ribs. Posterolaterally, the wound extended about 2 cm beyond the skin edge at the deep margin. Purulent material was cultured. DESCRIPTION OF PROCEDURE: After informed consent was obtained, the patient was taken to the operating room and placed in the supine position on the operating table. After induction of general anesthesia, the patient was turned to the left lateral decubitus position and his right chest was prepped and draped in sterile fashion. DeBakey forceps were used to probe the chronically draining wound associated with his previous incision and the cutting current of the electrocautery was used to incise the skin anteriorly and posteriorly to that wound, carrying it down to the rib cage. This required partial division of the latissimus. Probing the wound just caudad to that, where a sliver of calcified material had previously eroded and erupted, it tracked in close proximity to that wound that had already been opened. The ellipse was extended to incorporate that second wound tract and some of the skin and underlying subcutaneous tissue on latissimus were excised with the electrocautery. A fragment of calcified material suggestive of a flake of bone was recovered within that and then upon inspecting the wound anteriorly in between ribs, some greenish blue material was seen. When grasped, it withdrew fairly easily and it became apparent that this was a loop of Ethibond suture. A very gentle traction led to extraction of a long piece of suture with a knot tied in it creating a loop. No more suture material or other foreign body could be identified, and using a curette to probe that wound, it did not seem to dive free into the pleural space. The wound was then explored posteriorly and undermined several centimeters posteriorly and the ellipse of the incision was again extended to allow for a wide debridement to allow for easy packing. Posteriorly, the wound tracked in between ribs, again did not appear to track deep into the free pleural space, but rather just simply 0.5 cm or so deep to the superficial extent of the ribs. It became apparent that this wound was one that might be rather difficult to manage with conventional wet-to-dry dressings and would be prone to recurrences of loculations. After discussing with the patient's and the Wound Care Team, the wound was irrigated using a Pulsavac and 3 L of sterile irrigant and a wound VAC was applied. The patient was awakened in the operating room and taken to the recovery area in stable condition. Job ID: [id number]
[2020-09-11 16:39] LABS: Fungus Stain Final report (.)
== END 2020-09-08 11:10 | disposition home or self-care (01) ==
LOC: SDC 06:01
PROVIDERS: ATTEND Thoracic Surgery (Cardiothoracic Vascular Surgery)
PROC: 0W980ZZ Drainage of Chest Wall, Open Approach (ICD-10-PCS; principal; 2020-09-08)
DX: J94.2 Hemothorax (principal); I25.119 Atherosclerotic heart disease of native coronary artery with unspecified angina pectoris; Z79.82 Long term (current) use of aspirin; Z79.899 Other long term (current) drug therapy; Z95.1 Presence of aortocoronary bypass graft
CPT/HCPCS: 87070; 87077; 87102; 87186; 87205; 87206; J2405; J2704; J3010

== ENCOUNTER 2020-09-09 16:13 | Emergency (ER) | payer MEDICARE | END 2020-09-09 17:55 | disposition home or self-care (01) | LOC: ERS 16:13 | DX: Z53.21 Procedure and treatment not carried out due to patient leaving prior to being seen by health care provider (principal) ==

== ENCOUNTER 2020-09-13 08:02 | Emergency (ER) | payer MEDICARE ==
[2020-09-13 08:36] LABS: #Eosinphils 0.3 thou/uL (0.0-0.7); #Monocytes 0.7 thou/uL (0.11-0.59); %Basophils 0.3 % (0.0-1.0); %Eosinophils 3.2 % (0.0-10.0); %Lymphocytes 12.8 % (21.0-51.0); %Monocytes 8.3 % (0.0-10.0); %Neutrophils 75.4 % (42.0-75.0); Hemoglobin 11.9 g/dL (14.0-18.0); Mean Corpuscular HGB CONC 31.3 g/dL (32.0-36.0); Mean Corpuscular Hemoglobin 28.3 pg (27.0-31.0); Mean Corpuscular Volume 90.6 fL (78.0-98.0); Mean Platelet Volume 7.1 fL (7.4-10.4); Platelet Count 349 thou/uL (130-400); RBC Distribution Width 13.1 % (11.5-14.5); Red Blood Cell (RBC) Count 4.19 mill/uL (4.70-6.10); White Blood Cell (WBC) Count 7.9 thou/uL (4.8-10.8)
[2020-09-13 09:09] LABS: ALT (SGPT) 16 U/L (8-55); AST (SGOT) 15 U/L (5-34); Albumin 3.7 g/dL (3.4-4.8); Alkaline Phosphatase 120 U/L (40-110); Anion Gap 14 mmol/L (10-20); BUN (Urea Nitrogen) 11 mg/dL (8.4-25.7); Bilirubin, Total 0.3 mg/dL (0.2-1.2); Calc. Creatinine Clearance 0 mL/min (70-130); Calcium 8.7 mg/dL (7.8-10.44); Carbon Dioxide 25 mmol/L (23-31); Chloride 105 mmol/L (98-107); Estimated GFR-MDRD Greater than 90; Globulin 3.7 g/dL (2.4-3.5); Glucose 84 mg/dL (80-115); Potassium 3.9 mmol/L (3.5-5.1); Protein, Total 7.4 g/dL (5.8-8.1); Sodium 140 mmol/L (136-145)
== END 2020-09-13 09:21 | disposition home or self-care (01) ==
LOC: ERS 08:02
DX: T81.89XA Other complications of procedures, not elsewhere classified, initial encounter (principal); I10 Essential (primary) hypertension; Z79.899 Other long term (current) drug therapy
CPT/HCPCS: 36415; 80053; 85025; 99284